=== PATIENT | male | born 1955 | race Caucasian/White ===

== ENCOUNTER 2017-04-13 12:41 | Inpatient (IN) | payer OTHER ==
[2017-04-13 16:20] VITALS: BMI 25.8
--- NOTE | 2017-04-13 18:19 | HP ---
CIWA Score - CIWA Score Nausea/Vomitin-Mild Nausea/No Vomiting Muscle Tremors: 4-Moderate,w/Arms Extend Anxiety: 4-Mod. Anxious/Guarded Agitation: 4-Moderately Restless Paroxysmal Sweats: 1-Minimal Palms Moist Orientation: 0-Oriented Tacttile Disturbances: 0-None Auditory Disturbances: 0-None Visual Disturbances: 0-None Headache: 0-None Present CIWA-Ar Total Score: 14 Admission ROS BHS - HPI Chief Complaint: withdrawal sx Allergies/Adverse Reactions: Allergies Allergy/AdvReac Type Severity Reaction Status Date / Time No Known Allergies Allergy Verified 04/13/17 16:38 History of Present Illness: 61 years old male with long history of alcohol nicotine dependence has hypertension and abdominal aneurysm x 3 years, has anxiety is admitted to detox Exam Limitations: No Limitations - Ebola screening Have you traveled outside of the country in the last 21 days: No Have you had contact with anyone from an Ebola affected area: No Have you been sick,other than usual withdrawal symptoms: No Do you have a fever: No - Review of Systems Constitutional: Chills, Changes in sleep, Weight Stable EENT: reports: No Symptoms Reported Respiratory: reports: No Symptoms reported Cardiac: reports: No Symptoms Reported GI: reports: Nausea, Poor Fluid Intake, Abdominal cramping : reports: No Symptoms Reported Musculoskeletal: reports: No Symptoms Reported Integumentary: reports: Erythema (left knee abrasion x 7 days) Neuro: reports: Tremors Endocrine: reports: No Symptoms Reported Hematology: reports: No Symptoms Reported Psychiatric: reports: Judgement Intact, Orientated x3, Anxious, Depressed Other Systems: Reviewed and Negative Patient History - Patient Medical History Hx Anemia: No Hx Asthma: No Hx Chronic Obstructive Pulmonary Disease (COPD): No Hx Cancer: No Hx Cardiac Disorders: No Hx Congestive Heart Failure: No Hx Hypertension: Yes Hx Hypercholesterolemia: No Hx Pacemaker: No HX Cerebrovascular Accident: No Hx Seizures: No Hx Dementia: No Hx Diabetes: No Hx Gastrointestinal Disorders: No Hx Liver Disease: No Hx Genitourinary Disorders: No Hx Sexually Transmitted Disorders: No Hx Renal Disease (ESRD): No Hx Thyroid Disease: No Hx Human Immunodeficiency Virus (HIV): No Hx Hepatitis C: Yes Hx Depression: Yes Hx Suicide Attempt: No Hx Bipolar Disorder: No Hx Schizophrenia: No - Patient Surgical History Past Surgical History: No Hx Neurologic Surgery: No Hx Cataract Extraction: No Hx Cardiac Surgery: No Hx Lung Surgery: No Hx Breast Surgery: No Hx Breast Biopsy: No Hx Abdominal Surgery: No Hx Appendectomy: No Hx Cholecystectomy: No Hx Genitourinary Surgery: No Hx Orthopedic Surgery: No - PPD History Previous Implant?: Yes Documented Results: Negative w/o proof Implanted On Prior R Admission?: No PPD to be Administered?: Yes - Smoking Cessation Smoking history: Current every day smoker Have you smoked in the past 12 months: Yes Aproximately how many cigarettes per day: 20 Cigars Per Day: 0 Hx Chewing Tobacco Use: No Initiated information on smoking cessation: Yes 'Breaking Loose' booklet given: 04/13/17 - Substance & Tx. History Hx Alcohol Use: Yes Hx Substance Use: No Substance Use Type: Alcohol Hx Substance Use Treatment: Yes (1996) - Substances Abused Alcohol Route: Oral Frequency: Daily Amount used: WHISKEY 1 PINT, 1-2 6P OF BEER Age of first use: 28 Date of Last Use: 04/13/17 Family Disease History - Family Disease History Family Disease History: Heart Disease: Father (), Mother, Other: Father Admission Physical Exam S - Vital Signs Vital Signs: Vital Signs - 24 hr 04/13/17 16:17 Temperature 96 F L Pulse Rate 103 H Respiratory 20 Rate Blood Pressure 161/93 - Physical General Appearance: Yes: Nourished, Appropriately Dressed, Mild Distress, Tremorous, Irritable, Sweating, Anxious HEENTM: Yes: Hearing grossly Normal, Normal ENT Inspection, Normocephalic, Normal Voice Respiratory: Yes: Chest Non-Tender, Lungs Clear, Normal Breath Sounds, No Respiratory Distress, No Accessory Muscle Use Neck: Yes: Supple, Trachea in good position Cardiology: Yes: Regular Rhythm, S1, S2, Tachycardia Abdominal: Yes: Normal Bowel Sounds, Non Tender, Soft Genitourinary: Yes: Within Normal Limits Back: Yes: Normal Inspection Musculoskeletal: Yes: full range of Motion, Gait Steady Extremities: Yes: Normal Inspection, Normal Range of Motion, Non-Tender, Tremors Neurological: Yes: Fully Oriented, Alert, Motor Strength 5/5, Normal Response, Depressed Affect Integumentary: Yes: Warm Lymphatic: Yes: Within Normal Limits - Diagnostic (1) Anxiety Current Visit: Yes Status: Suspected (2) Alcohol dependence with uncomplicated withdrawal Current Visit: Yes Status: Acute (3) Nicotine dependence Current Visit: Yes Status: Acute Qualifiers: Nicotine product type: cigarettes Substance use status: in withdrawal Qualified Code(s): F17.213 - Nicotine dependence, cigarettes, with withdrawal (4) Hepatitis-C Current Visit: Yes Status: Resolved Qualifiers: Viral hepatitis chronicity: carrier Qualified Code(s): B18.2 - Chronic viral hepatitis C Comment: treated (5) Abdominal aneurysm without mention of rupture Current Visit: Yes Status: Chronic Comment: 3.5 cm Cleared for Admission [facility] - Detox or Rehab [facility] Level of Care: Medically Managed Detox Regimen/Protocol: Librium [facility] Breath Alcohol Content Breath Alcohol Content: 0 Urine Drug Screen - Results Drug Screen Negative: Yes
[2017-04-13] MEDS ORDERED: MAGNESIUM HYDROX 2400MG/30ML ORAL SUSPENSION 30 ML CUP PO PRN (18:24)
[2017-04-13] MEDS ORDERED: LOPERAMIDE HCL 2 MG CAPSULE PO PRN (18:24)
[2017-04-13] MEDS ORDERED: IBUPROFEN 400 MG TABLET (FP) PO PRN (18:24)
[2017-04-13] MEDS ORDERED: MENTHOL/PHENOL 1 EACH UD MM PRN (18:24)
[2017-04-13] MEDS ORDERED: NICOTINE POLACRILEX 4 MG GUM BC PRN (18:24)
[2017-04-13] MEDS ORDERED: guaiFENesin/D-METHORPHAN HB 10 ML UNIT-DOSE CUPS PO PRN (18:24)
[2017-04-13] MEDS ORDERED: MAG HYDROX/AL HYDROX/SIMETH 30 ML UNIT-DOSE CUP PO PRN (18:24)
[2017-04-13] MEDS ORDERED: ACETAMINOPHEN 325 MG TABLET (FP) PO PRN (18:24)
[2017-04-13] MEDS ORDERED: hydrOXYzine PAMOATE 50 MG CAPSULE (FP) PO PRN (18:24)
[2017-04-13] MEDS ORDERED: P-EPHED 60MG/TRIPROLIDI 2.5MG TABLET PO PRN (18:24)
[2017-04-13] MEDS ORDERED: MAGNESIUM CITRATE 300 ML BOTTLE PO PRN (18:24)
[2017-04-13] MEDS ORDERED: chlordiazePOXIDE HCL 25 MG CAPSULE PO ONE (19:00)
[2017-04-13] MEDS: LOSARTAN POTASSIUM 50 MG TABLET (FP) PO SCH (19:13)
[2017-04-13] MEDS: amLODIPine BESYLATE 10 MG TABLET (FP) PO SCH (19:13)
[2017-04-13] MEDS: chlordiazePOXIDE HCL 25 MG CAPSULE PO PRN (20:31)
[2017-04-13] MEDS: THIAMINE HCL 100 MG TABLET (FP) PO SCH (22:37)
[2017-04-13] MEDS: chlordiazePOXIDE HCL 25 MG CAPSULE PO SCH (22:38)
[2017-04-13] MEDS: diphenhydrAMINE HCL 50 MG CAPSULE PO PRN (22:38)
[2017-04-14] MEDS: chlordiazePOXIDE HCL 25 MG CAPSULE PO SCH ×4 (05:59→22:36)
--- NOTE | 2017-04-14 09:45 | CONSULT ---
[facility] Psychiatric Consult - Data Date of interview: 04/14/17 Admission source: [facility] Identifying data: This is 61 years old male with no psychiatric hospitalization history intoxicated with: Alcohol and Nicotine Substance Abuse History: - Smoking Cessation. Smoking history: Current every day smoker. Have you smoked in the past 12 months: Yes. Aproximately how many cigarettes per day: 20. Cigars Per Day: 0. Hx Chewing Tobacco Use: No. Initiated information on smoking cessation: Yes. 'Breaking Loose' booklet given : 04/13/17. - Substance & Tx. History. Hx Alcohol Use: Yes. Hx Substance Use : No. Substance Use Type: Alcohol. Hx Substance Use Treatment: Yes (1996). - Substances Abused. Alcohol. Route: Oral. Frequency: Daily. Amount used: WHISKEY 1 PINT, 1-2 6P OF BEER. Age of first use: 28. Date of Last Use: 04/13 Medical History: Abdomina Aneurism history, HepC+, Psychiatric History: Denies past psychiatgric history Physical/Sexual Abuse/Trauma History: Denies Additional Comment: Detox Unit Care Protocol Mental Status Exam - Mental Status Exam Alert and Oriented to: Person Cognitive Function: Fair Patient Appearance: Unkempt Mood: Sad Affect: Flat Patient Behavior: Sedated Speech Pattern: Delayed Voice Loudness: Mildly Soft/Quiet Thought Process: Goal Oriented Thought Disorder: Being Controlled Hallucinations: Denies Suicidal Ideation: Denies Homicidal Ideation: Denies Insight/Judgement: Fair Sleep: Difficulty falling asleep Appetite: Fair Muscle strength/Tone: Normal Gait/Station: Shuffling Additional Comments: Detox Unit Care Protocol Psychiatric Findings - Problem List ([place] 1, 2,3) (1) Alcohol dependence with uncomplicated withdrawal Current Visit: Yes Status: Acute (2) Nicotine dependence Current Visit: Yes Status: Acute Qualifiers: Nicotine product type: cigarettes Substance use status: in withdrawal Qualified Code(s): F17.213 - Nicotine dependence, cigarettes, with withdrawal (3) Drug-induced mood disorder Current Visit: Yes Status: Suspected - Initial Treatment Plan Initial Treatment Plan: Detox Unit Care Protocol
[2017-04-14 09:50] LABS: MCHC 33.4 g/dl (32.0-35.9); MEAN PLT VOLUME 8.7 fl (7.5-11.1); PLATELET COUNT 297 K/MM3 (134-434); RDW 14.9 % (11.9-15.9); WHITE BLOOD COUNT 9.4 K/mm3 (4.0-10.0)
[2017-04-14] MEDS: LOSARTAN POTASSIUM 50 MG TABLET (FP) PO SCH (10:41)
[2017-04-14] MEDS: NICOTINE 21 MG/24 HOURS TOPICAL PATCH TD SCH (10:41)
[2017-04-14] MEDS: amLODIPine BESYLATE 10 MG TABLET (FP) PO SCH (10:41)
[2017-04-14] MEDS: PRENATAL VITAMINS W/ FOLIC ACID TABLET (FP) PO SCH (10:41)
[2017-04-14 11:11] LABS: ALBUMIN 3.9 g/dl (3.4-5.0); ALK PHOS 115 U/L (45-117); ANION GAP 11 (8-16); BILIRUBIN,TOTAL 0.6 mg/dL (0.2-1.0); CALCIUM 8.7 mg/dL (8.5-10.1); CO2 20 mmol/L (21-32); GLUCOSE,RANDOM 146 mg/dL (74-106); SGOT/AST 24 U/L (15-37); SGPT/ALT 25 U/L (12-78)
[2017-04-14] MEDS ORDERED: PNEUMOC 13-VAL CONJ-DIP CRM/PF 0.5 ML DISP.SYRIN IM ONE (12:00)
[2017-04-14] MEDS ORDERED: PNEUMOCOCCAL 23 VACCINE 0.5 ML VIAL IM ONE (12:00)
--- NOTE | 2017-04-14 12:22 | PN ---
S CIWA - CIWA Score Nausea/Vomitin Muscle Tremors: 4-Moderate,w/Arms Extend Anxiety: 3 Agitation: 4-Moderately Restless Paroxysmal Sweats: 3 Orientation: 0-Oriented Tacttile Disturbances: 1-Very Mild Itch/Numbness Auditory Disturbances: 0-None Visual Disturbances: 0-None Headache: 1-Very Mild CIWA-Ar Total Score: 19 BHS Progress Note (SOAP) Subjective: nausea, sweats, interrupted sleep, anxiety, tremors Objective: 04/14/17 12:21 Vital Signs - 8 hr 04/14/17 04/14/17 06:48 10:17 Temperature 96.7 F L 96.4 F L Pulse Rate 84 89 Respiratory 18 20 Rate Blood Pressure 146/100 141/100 Laboratory Tests 04/14/17 04/14/17 04/14/17 06:00 06:00 06:00 WBC 9.4 RBC 4.81 Hgb 15.9 Hct 47.6 MCV 99.0 H MCH 33.0 MCHC 33.4 RDW 14.9 Plt Count 297 MPV 8.7 Sodium 140 Potassium 4.3 Chloride 109 H Carbon Dioxide 20 L Anion Gap 11 BUN 13 Creatinine 1.0 Creat Clearance w eGFR > 60 Random Glucose 146 H Calcium 8.7 Total Bilirubin 0.6 AST 24 ALT 25 Alkaline Phosphatase 115 Total Protein 7.0 Albumin 3.9 RPR Titer Nonreactive macrocytosis, hypertension Assessment: 04/14/17 12:22 withdrawal sx Plan: cont detox, fluids, ambulation
--- NOTE | 2017-04-14 15:00 | EKG ---
Test Reason : Blood Pressure : / mmHG Vent. Rate : 088 BPM Atrial Rate : 088 BPM P-R Int : 158 ms QRS Dur : 082 ms QT Int : 372 ms P-R-T Axes : 058 004 043 degrees QTc Int : 450 ms NORMAL SINUS RHYTHM POSSIBLE LEFT ATRIAL ENLARGEMENT BORDERLINE ECG NO PREVIOUS ECGS AVAILABLE Confirmed by SAMMY HERNANDEZ, GUNNAR ([id number]) on 04/14/2017 3:00:15 PM Referred By: Confirmed By:GUNNAR CHRISTIANSON MD
[2017-04-14 17:23] LABS: URINE APPEARANCE CLEAR; URINE BILIRUBIN NEGATIVE (NEGATIVE); URINE BLOOD NEGATIVE (NEGATIVE); URINE COLOR LT. YELLOW; URINE GLUCOSE (UA) NEGATIVE (NEGATIVE); URINE KETONE NEGATIVE (NEGATIVE); URINE LEUK ESTERASE NEGATIVE (NEGATIVE); URINE NITRITE NEGATIVE (NEGATIVE); URINE PROTEIN NEGATIVE (NEGATIVE); URINE UROBILINOGEN 0.2 mg/dL (0.2-1.0)
[2017-04-14] MEDS: diphenhydrAMINE HCL 50 MG CAPSULE PO PRN (22:35)
[2017-04-14] MEDS: THIAMINE HCL 100 MG TABLET (FP) PO SCH (22:35)
[2017-04-15] MEDS: diphenhydrAMINE HCL 50 MG CAPSULE PO PRN (00:47)
[2017-04-15] MEDS: chlordiazePOXIDE HCL 25 MG CAPSULE PO PRN (00:47)
[2017-04-15] MEDS: chlordiazePOXIDE HCL 25 MG CAPSULE PO SCH ×2 (05:58→10:43)
[2017-04-15 09:41] VITALS: BP 141/93; PULSE 93; TEMP 97.1
[2017-04-15] MEDS: LOSARTAN POTASSIUM 50 MG TABLET (FP) PO SCH (10:43)
[2017-04-15] MEDS: amLODIPine BESYLATE 10 MG TABLET (FP) PO SCH (10:43)
[2017-04-15] MEDS: NICOTINE 21 MG/24 HOURS TOPICAL PATCH TD SCH (10:43)
[2017-04-15] MEDS: PRENATAL VITAMINS W/ FOLIC ACID TABLET (FP) PO SCH (10:43)
--- NOTE | 2017-04-15 16:38 | DS ---
[facility] Detox Discharge Summary Admission Date: 04/13/17 Discharge Date: 04/15/17 - History Pertinent Past History: Hep C Abdominal aneurysm - Physical Exam Results Vital Signs: Vital Signs Temperature 97.1 F L 04/15/17 09:40 Pulse Rate 93 H 04/15/17 09:40 Respiratory Rate 20 04/15/17 09:40 Blood Pressure 141/93 04/15/17 09:40 O2 Sat by Pulse Oximetry (%) Pertinent Admission Physical Exam Findings: Withdrawal sx. Laboratory Last Values WBC 9.4 K/mm3 (4.0-10.0) 04/14/17 06:00 RBC 4.81 M/mm3 (4.00-5.60) 04/14/17 06:00 Hgb 15.9 GM/dL (11.7-16.9) 04/14/17 06:00 Hct 47.6 % (35.4-49) 04/14/17 06:00 MCV 99.0 fl (80-96) H 04/14/17 06:00 MCH 33.0 pg (25.7-33.7) 04/14/17 06:00 MCHC 33.4 g/dl (32.0-35.9) 04/14/17 06:00 RDW 14.9 % (11.9-15.9) 04/14/17 06:00 Plt Count 297 K/MM3 (134-434) 04/14/17 06:00 MPV 8.7 fl (7.5-11.1) 04/14/17 06:00 Sodium 140 mmol/L (136-145) 04/14/17 06:00 Potassium 4.3 mmol/L (3.5-5.1) 04/14/17 06:00 Chloride 109 mmol/L (98-107) H 04/14/17 06:00 Carbon Dioxide 20 mmol/L (21-32) L 04/14/17 06:00 Anion Gap 11 (8-16) 04/14/17 06:00 BUN 13 mg/dL (7-18) 04/14/17 06:00 Creatinine 1.0 mg/dL (0.7-1.3) 04/14/17 06:00 Creat Clearance w eGFR > 60 (>60) 04/14/17 06:00 Random Glucose 146 mg/dL (74-106) H 04/14/17 06:00 Calcium 8.7 mg/dL (8.5-10.1) 04/14/17 06:00 Total Bilirubin 0.6 mg/dL (0.2-1.0) 04/14/17 06:00 AST 24 U/L (15-37) 04/14/17 06:00 ALT 25 U/L (12-78) 04/14/17 06:00 Alkaline Phosphatase 115 U/L (45-117) 04/14/17 06:00 Total Protein 7.0 g/dl (6.4-8.2) 04/14/17 06:00 Albumin 3.9 g/dl (3.4-5.0) 04/14/17 06:00 Urine Color Lt. yellow 04/13/17 15:00 Urine Appearance Clear 04/13/17 15:00 Urine pH 6.0 (5.0-8.0) 04/13/17 15:00 Ur Specific [place] <= 1.005 (1.005-1.025) 04/13/17 15:00 Urine Protein Negative (NEGATIVE) 04/13/17 15:00 Urine Glucose (UA) Negative (NEGATIVE) 04/13/17 15:00 Urine Ketones Negative (NEGATIVE) 04/13/17 15:00 Urine Blood Negative (NEGATIVE) 04/13/17 15:00 Urine Nitrite Negative (NEGATIVE) 04/13/17 15:00 Urine Bilirubin Negative (NEGATIVE) 04/13/17 15:00 Urine Urobilinogen 0.2 mg/dL (0.2-1.0) 04/13/17 15:00 Ur Leukocyte Esterase Negative (NEGATIVE) 04/13/17 15:00 RPR Titer Nonreactive (NONREACTIVE) 04/14/17 06:00 labs noted - Treatment Patient has Accepted a Rehab Referral to: [facility] - Medication Discharge Medications: Ambulatory Orders Losartan Potassium [Cozaar -] 50 mg PO DAILY 04/12/17 Amlodipine Besylate [Norvasc -] 10 mg PO DAILY 04/13/17 - Diagnosis (1) Alcohol dependence with uncomplicated withdrawal Status: Acute (2) Nicotine dependence Status: Acute Qualifiers: Nicotine product type: cigarettes Substance use status: in withdrawal Qualified Code(s): F17.213 - Nicotine dependence, cigarettes, with withdrawal (3) Abdominal aneurysm without mention of rupture Status: Chronic (4) Drug-induced mood disorder Status: Suspected (5) Hepatitis-C Status: Resolved Qualifiers: Viral hepatitis chronicity: carrier Qualified Code(s): B18.2 - Chronic viral hepatitis C (6) HTN (hypertension) Status: Acute Qualifiers: Hypertension type: essential hypertension Qualified Code(s): I10 - Essential (primary) hypertension - AMA Did Patient Leave Against Medical Advice: Yes
[2017-04-15] MEDS ORDERED: chlordiazePOXIDE 5 MG CAPSULE PO SCH (23:00)
[2017-04-16] MEDS ORDERED: chlordiazePOXIDE HCL 10 MG CAPSULE PO SCH (23:00)
== END 2017-04-15 11:40 | disposition left against medical advice (07) | DRG 770 ==
LOC: YASAS 12:41 → Y3N 17:00
PROVIDERS: ADMIT Internal Medicine; ATTEND Internal Medicine
PROC: HZ2ZZZZ Detoxification Services for Substance Abuse Treatment (ICD-10-PCS; principal; 2017-04-13)
DX: F10.230 Alcohol dependence with withdrawal, uncomplicated (principal); F17.210 Nicotine dependence, cigarettes, uncomplicated; F19.24 Other psychoactive substance dependence with psychoactive substance-induced mood disorder; F41.9 Anxiety disorder, unspecified; I71.4 Abdominal aortic aneurysm, without rupture; B18.2 Chronic viral hepatitis C; I10 Essential (primary) hypertension; D75.89 Other specified diseases of blood and blood-forming organs; R00.0 Tachycardia, unspecified
CPT/HCPCS: 36415; 80053; 81003; 85027; 86593; 93005; 93010

== ENCOUNTER 2017-05-21 10:50 | Inpatient (IN) | payer MEDICARE ==
[2017-05-21 11:09] VITALS: BMI 25.8
--- NOTE | 2017-05-21 12:00 | HP ---
COWS - Scale Resting Pulse: 1= MA 81-100 CIWA Score - CIWA Score Nausea/Vomitin-Mild Nausea/No Vomiting Muscle Tremors: 4-Moderate,w/Arms Extend Anxiety: 4-Mod. Anxious/Guarded Agitation: 1-Slight > Activity Paroxysmal Sweats: 1-Minimal Palms Moist Orientation: 1-Uncertain about Date Tacttile Disturbances: 1-Very Mild Itch/Numbness Auditory Disturbances: 1-Very Mild Visual Disturbances: 1-Very Mild Sensitivity Headache: 2-Mild CIWA-Ar Total Score: 17 Admission ROS BHS - HPI Chief Complaint: I can't stop on my own, I need help, I get too sick Allergies/Adverse Reactions: Allergies Allergy/AdvReac Type Severity Reaction Status Date / Time No Known Allergies Allergy Verified 05/21/17 12:54 History of Present Illness: 61 yo gentleman here for detox from alcohol - was here in march - did not f/u with rehab - states threw him out three days ago for drinking. Denies seizures, no black outs, longest times sober 19 years - relapsed when "I thought I could drink again". Exam Limitations: Clinical Condition - Ebola screening Have you traveled outside of the country in the last 21 days: No Have you had contact with anyone from an Ebola affected area: No Have you been sick,other than usual withdrawal symptoms: No Do you have a fever: No - Review of Systems Constitutional: Loss of Appetite, Changes in sleep EENT: reports: Blurred Vision Respiratory: reports: Cough (clear phlegm) Cardiac: reports: No Symptoms Reported GI: reports: Nausea, Poor Appetite : reports: No Symptoms Reported Musculoskeletal: reports: Other (left hand limitted ROM/movement due to fracture of fingers) Integumentary: reports: No Symptoms Reported Neuro: reports: No Symptoms reported, Tremors Endocrine: reports: No Symptoms Reported Hematology: reports: No Symptoms Reported Psychiatric: reports: Judgement Intact, Mood/Affect Appropiate, Anxious Patient History - Patient Medical History Hx Anemia: No Hx Asthma: No Hx Chronic Obstructive Pulmonary Disease (COPD): No Hx Cancer: No Hx Cardiac Disorders: No Hx Congestive Heart Failure: No Hx Hypertension: Yes Hx Hypercholesterolemia: No Hx Pacemaker: No HX Cerebrovascular Accident: No Hx Seizures: No Hx Dementia: No Hx Diabetes: No Hx Gastrointestinal Disorders: No Hx Liver Disease: No Hx Genitourinary Disorders: No Hx Sexually Transmitted Disorders: No Hx Renal Disease (ESRD): No Hx Thyroid Disease: No Hx Human Immunodeficiency Virus (HIV): No Hx Hepatitis C: Yes (treated with epolus ) Hx Depression: Yes Hx Suicide Attempt: No Hx Bipolar Disorder: No Hx Schizophrenia: No - Patient Surgical History Past Surgical History: No Hx Neurologic Surgery: No Hx Cataract Extraction: No Hx Cardiac Surgery: No Hx Lung Surgery: No Hx Breast Surgery: No Hx Breast Biopsy: No Hx Abdominal Surgery: No Hx Appendectomy: No Hx Cholecystectomy: No Hx Genitourinary Surgery: No Hx Section: No Hx Orthopedic Surgery: No Anesthesia Reaction: No - PPD History Previous Implant?: Yes Documented Results: Negative w/proof Date: 04/15/17 PPD to be Administered?: No - Reproductive History Patient is a Female of Child Bearing Age (11 -55 yrs old): No (male) - Smoking Cessation Smoking history: Current every day smoker Have you smoked in the past 12 months: Yes Aproximately how many cigarettes per day: 10 Cigars Per Day: 0 Hx Chewing Tobacco Use: No Initiated information on smoking cessation: Yes 'Breaking Loose' booklet given: 05/21/17 (give on floor) - Substance & Tx. History Hx Alcohol Use: Yes Hx Substance Use: No Substance Use Type: Alcohol Hx Substance Use Treatment: Yes (detox) - Substances Abused Alcohol Route: Oral Frequency: Daily Amount used: two six packs 12 oz beer; 1 quart scotch Age of first use: 28 Date of Last Use: 05/21/17 Family Disease History - Family Disease History Family Disease History: Heart Disease: Father (), Mother (dying - in a residential), Other: Father, Mother, Sister (three - living - healthy) Admission Physical Exam S - Vital Signs Vital Signs: Vital Signs - 24 hr 05/21/17 11:07 Temperature 97.8 F Pulse Rate 110 H Respiratory 20 Rate Blood Pressure 149/91 - Physical General Appearance: Yes: Nourished, Appropriately Dressed, Mild Distress, Tremorous, Anxious HEENTM: Yes: Hearing grossly Normal, Normocephalic, Normal Voice, Pharynx Normal , Other (eyes red) Respiratory: Yes: Normal Breath Sounds, No Respiratory Distress Neck: Yes: No masses,lesions,Nodules, Supple Breast: Yes: Breast Exam Deferred Cardiology: Yes: Regular Rhythm, Regular Rate Abdominal: Yes: Soft Genitourinary: Yes: Frequency Back: Yes: Normal Inspection Musculoskeletal: Yes: full range of Motion, Gait Steady Extremities: Yes: Pedal Edema, Other (left hand with swelling, limitted movement - states he broke the pinky and ring finger - was seen at [facility] ED - they casted it but he took it off - about a month ago) Neurological: Yes: Alert, Normal Mood/Affect, Normal Response Integumentary: Yes: Normal Color Lymphatic: Yes: Within Normal Limits - Diagnostic (1) Alcohol dependence with uncomplicated withdrawal Current Visit: Yes Status: Chronic (2) HTN (hypertension) Current Visit: Yes Status: Chronic Qualifiers: Hypertension type: essential hypertension Qualified Code(s): I10 - Essential (primary) hypertension (3) Nicotine dependence Current Visit: Yes Status: Chronic Qualifiers: Nicotine product type: cigarettes Substance use status: in withdrawal Qualified Code(s): F17.213 - Nicotine dependence, cigarettes, with withdrawal (4) Abdominal aneurysm without mention of rupture Current Visit: Yes Status: Chronic Comment: 3.5 cm (5) Swelling of left hand Current Visit: Yes Status: Chronic Comment: states fracture of pinky and ring finger a month ago but he took off the cast as 'too bulky' and now with swelling and reduced ROM Cleared for Admission [facility] - Detox or Rehab [facility] Level of Care: Medically Managed Detox Regimen/Protocol: Librium [facility] Breath Alcohol Content Breath Alcohol Content: 0.256 Urine Drug Screen - Results Drug Screen Negative: No Urine Drug Screen Results: TCA-Tricyclic Antidepress
[2017-05-21] MEDS ORDERED: P-EPHED 60MG/TRIPROLIDI 2.5MG TABLET PO PRN (12:11)
[2017-05-21] MEDS ORDERED: IBUPROFEN 400 MG TABLET (FP) PO PRN (12:11)
[2017-05-21] MEDS ORDERED: chlordiazePOXIDE HCL 25 MG CAPSULE PO PRN (12:11)
[2017-05-21] MEDS ORDERED: MAG HYDROX/AL HYDROX/SIMETH 30 ML UNIT-DOSE CUP PO PRN (12:11)
[2017-05-21] MEDS ORDERED: MENTHOL/PHENOL 1 EACH UD MM PRN (12:11)
[2017-05-21] MEDS ORDERED: MAGNESIUM CITRATE 300 ML BOTTLE PO PRN (12:11)
[2017-05-21] MEDS ORDERED: hydrOXYzine PAMOATE 50 MG CAPSULE (FP) PO PRN (12:11)
[2017-05-21] MEDS ORDERED: ACETAMINOPHEN 325 MG TABLET (FP) PO PRN (12:11)
[2017-05-21] MEDS ORDERED: MAGNESIUM HYDROX 2400MG/30ML ORAL SUSPENSION 30 ML CUP PO PRN (12:11)
[2017-05-21] MEDS ORDERED: LOPERAMIDE HCL 2 MG CAPSULE PO PRN (12:11)
[2017-05-21] MEDS ORDERED: guaiFENesin/D-METHORPHAN HB 10 ML UNIT-DOSE CUPS PO PRN (12:11)
[2017-05-21] MEDS ORDERED: amLODIPine BESYLATE 10 MG TABLET (FP) PO SCH (16:30)
[2017-05-21] MEDS ORDERED: LOSARTAN POTASSIUM 50 MG TABLET (FP) PO SCH (16:30)
[2017-05-21] MEDS ORDERED: chlordiazePOXIDE HCL 25 MG CAPSULE PO ONE (16:30)
[2017-05-21] MEDS ORDERED: chlordiazePOXIDE HCL 25 MG CAPSULE PO SCH (17:00)
[2017-05-21] MEDS: NICOTINE 21 MG/24 HOURS TOPICAL PATCH TD SCH ×2 (18:16→18:57)
[2017-05-21 18:49] VITALS: BP 149/88; PULSE 116; TEMP 98.8
--- NOTE | 2017-05-21 19:41 | PN ---
S Progress Note Note: CALLED BY NURSE STATED PATIENT LEFT THE UNIT,DID NOT WANT TO BE IN DETOX, NURSING INSPECTOR CLIP ON [employer]GL[employer]ES NOTIFIED, LEFT AMA,
--- NOTE | 2017-05-21 19:49 | DS ---
[facility] Detox Discharge Summary Admission Date: 05/21/17 Discharge Date: 05/21/17 - History Present History: Alcohol Dependence Additional Comments: CALLED BY NURSE,PATIENT WALKED OFF FROM UNIT,DID NOT WANT TO STAY FOR DETOX, LEFT AMA,NURSING PHILATELIC CONSULTANT NOTIFIED Pertinent Past History: HYPERTENSION ABDOMINAL AORTIC ANEURYSM NICOTINE DEPENDENCE - Physical Exam Results Vital Signs: Vital Signs Temperature 98.8 F 05/21/17 18:48 Pulse Rate 116 H 05/21/17 18:48 Respiratory Rate 18 05/21/17 18:48 Blood Pressure 149/88 05/21/17 18:48 O2 Sat by Pulse Oximetry (%) Pertinent Admission Physical Exam Findings: WITHDRAWAL SYMPTOM - Medication Discharge Medications: Ambulatory Orders Losartan Potassium [Cozaar -] 50 mg PO DAILY 04/12/17 Amlodipine Besylate [Norvasc -] 10 mg PO DAILY 04/13/17 - Diagnosis (1) Alcohol dependence with uncomplicated withdrawal Current Visit: Yes Status: Chronic (2) Abdominal aneurysm without mention of rupture Current Visit: Yes Status: Chronic (3) HTN (hypertension) Current Visit: Yes Status: Chronic Qualifiers: Hypertension type: essential hypertension Qualified Code(s): I10 - Essential (primary) hypertension (4) Nicotine dependence Current Visit: Yes Status: Chronic Qualifiers: Nicotine product type: cigarettes Substance use status: in withdrawal Qualified Code(s): F17.213 - Nicotine dependence, cigarettes, with withdrawal (5) Swelling of left hand Current Visit: Yes Status: Chronic (6) Drug-induced mood disorder Current Visit: No Status: Suspected - AMA Did Patient Leave Against Medical Advice: Yes
[2017-05-21] MEDS ORDERED: diphenhydrAMINE HCL 50 MG CAPSULE PO PRN (22:00)
[2017-05-21] MEDS ORDERED: THIAMINE HCL 100 MG TABLET (FP) PO SCH (22:00)
--- NOTE | 2017-05-22 08:45 | EKG ---
Test Reason : Blood Pressure : / mmHG Vent. Rate : 100 BPM Atrial Rate : 100 BPM P-R Int : 154 ms QRS Dur : 084 ms QT Int : 364 ms P-R-T Axes : 066 013 043 degrees QTc Int : 469 ms NORMAL SINUS RHYTHM POSSIBLE LEFT ATRIAL ENLARGEMENT Confirmed by MD JADA, FELIPA ([id number]) on 05/22/2017 8:45:13 AM Referred By: Confirmed By:FELIPA ELIAS MD
[2017-05-22] MEDS ORDERED: PRENATAL VITAMINS W/ FOLIC ACID TABLET (FP) PO SCH (10:00)
[2017-05-22 10:21] LABS: URINE APPEARANCE CLEAR; URINE BILIRUBIN NEGATIVE (NEGATIVE); URINE BLOOD NEGATIVE (NEGATIVE); URINE COLOR STRAW; URINE GLUCOSE (UA) NEGATIVE (NEGATIVE); URINE KETONE NEGATIVE (NEGATIVE); URINE LEUK ESTERASE NEGATIVE (NEGATIVE); URINE NITRITE NEGATIVE (NEGATIVE); URINE PROTEIN NEGATIVE (NEGATIVE); URINE UROBILINOGEN NEGATIVE mg/dL (0.2-1.0)
[2017-05-22] MEDS ORDERED: chlordiazePOXIDE HCL 25 MG CAPSULE PO SCH (17:00)
[2017-05-23] MEDS ORDERED: chlordiazePOXIDE 5 MG CAPSULE PO SCH (17:00)
[2017-05-24] MEDS ORDERED: chlordiazePOXIDE HCL 10 MG CAPSULE PO SCH (17:00)
== END 2017-05-21 19:29 | disposition left against medical advice (07) | DRG 770 ==
LOC: YASAS 10:50 → Y3N 15:23
PROVIDERS: ADMIT Internal Medicine; ATTEND Internal Medicine
PROC: HZ2ZZZZ Detoxification Services for Substance Abuse Treatment (ICD-10-PCS; principal; 2017-05-21)
DX: F10.230 Alcohol dependence with withdrawal, uncomplicated (principal); F17.210 Nicotine dependence, cigarettes, uncomplicated; F19.24 Other psychoactive substance dependence with psychoactive substance-induced mood disorder; I10 Essential (primary) hypertension; I71.4 Abdominal aortic aneurysm, without rupture; M79.89 Other specified soft tissue disorders; R22.32 Localized swelling, mass and lump, left upper limb
CPT/HCPCS: 81003; 93005; 93010

== ENCOUNTER 2017-09-23 09:10 | Inpatient (IN) | payer OTHER ==
[2017-09-23 09:32] VITALS: BMI 25.8
--- NOTE | 2017-09-23 11:47 | HP ---
CIWA Score - CIWA Score Nausea/Vomitin Muscle Tremors: 3 Anxiety: 3 Agitation: 3 Paroxysmal Sweats: 3 Orientation: 0-Oriented Tacttile Disturbances: 1-Very Mild Itch/Numbness Auditory Disturbances: 0-None Visual Disturbances: 0-None Headache: 1-Very Mild CIWA-Ar Total Score: 17 Admission [facility] Chief Complaint: alcohol and benzodiazepine withdrwawal sx Allergies/Adverse Reactions: Allergies Allergy/AdvReac Type Severity Reaction Status Date / Time No Known Allergies Allergy Verified 09/23/17 09:52 History of Present Illness: 62 yo m with h/o alcohol and benzodiazepine and opioid use diosrder, last used opioids on tuesday utox neg has withdrawal sx fromal all drugs. chronic apin syndromee both legs bialteral, prescribed opioid pain medications whcih he runs out of and buys more [employer]. no h/o seiuzres, no DTS. no suicide attempts in past or suicicdal ideation at this time c/o dehydration and depression Exam Limitations: No Limitations - Ebola screening Have you traveled outside of the country in the last 21 days: No Have you had contact with anyone from an Ebola affected area: No Have you been sick,other than usual withdrawal symptoms: No Do you have a fever: No - Review of Systems Constitutional: Chills, Diaphoresis, Night Sweats, Changes in sleep, Weakness, Weight Stable EENT: reports: Tearing, Nose Congestion Respiratory: reports: No Symptoms reported Cardiac: reports: No Symptoms Reported GI: reports: Diarrhea, Nausea, Poor Appetite, Poor Fluid Intake, Vomiting, Indigestion, Abdominal cramping : reports: No Symptoms Reported Musculoskeletal: reports: Back Pain, Joint Pain, Muscle Pain Integumentary: reports: Flushing, Sweating Neuro: reports: Tremors, Weakness Endocrine: reports: Increased Thirst Hematology: reports: No Symptoms Reported Psychiatric: reports: Judgement Intact, Mood/Affect Appropiate, Orientated x3, Anxious, Depressed Other Systems: Reviewed and Negative Patient History - Patient Medical History Hx Anemia: No Hx Asthma: No Hx Chronic Obstructive Pulmonary Disease (COPD): No Hx Cancer: No Hx Cardiac Disorders: No Hx Congestive Heart Failure: No Hx Hypertension: Yes (NON COMPLIANT WITH MEDS.) Hx Hypercholesterolemia: No Hx Pacemaker: No HX Cerebrovascular Accident: No Hx Seizures: No Hx Dementia: No Hx Diabetes: No Hx Gastrointestinal Disorders: No Hx Liver Disease: No Hx Genitourinary Disorders: No Hx Sexually Transmitted Disorders: No Hx Renal Disease (ESRD): No Hx Thyroid Disease: No Hx Human Immunodeficiency Virus (HIV): No Hx Hepatitis C: Yes (treated with epolus ) Hx Depression: Yes Hx Suicide Attempt: No (no si at this time) Hx Bipolar Disorder: No Hx Schizophrenia: No - Patient Surgical History Past Surgical History: No Hx Neurologic Surgery: No Hx Cataract Extraction: No Hx Cardiac Surgery: No Hx Lung Surgery: No Hx Breast Surgery: No Hx Breast Biopsy: No Hx Abdominal Surgery: No Hx Appendectomy: No Hx Cholecystectomy: No Hx Genitourinary Surgery: No Hx Section: No Hx Orthopedic Surgery: No Anesthesia Reaction: No - PPD History Previous Implant?: Yes Documented Results: Negative w/o proof Implanted On Prior R Admission?: Yes Date: 04/15/17 - Reproductive History Patient is a Female of Child Bearing Age (11 -55 yrs old): No Patient : No - Smoking Cessation Smoking history: Current every day smoker Have you smoked in the past 12 months: Yes Aproximately how many cigarettes per day: 10 Cigars Per Day: 0 Hx Chewing Tobacco Use: No Initiated information on smoking cessation: Yes 'Breaking Loose' booklet given: 09/23/17 - Substance & Tx. History Hx Alcohol Use: Yes Hx Substance Use: Yes Substance Use Type: Alcohol, Heroin, Opiates, Prescribed, Tranquilizers [facility]x [facility] - Substances Abused Alcohol Route: Oral Frequency: Daily Amount used: 2 6PKS BEER AND UP Age of first use: 16 Date of Last Use: 09/23/17 Oxycontin Route: Injection Frequency: Daily Age of first use: 14 Date of Last Use: 09/21/17 Family Disease History - Family Disease History Family Disease History: Heart Disease: Father (), Mother (dying - in a longterm), Other: Father, Mother, Sister (three - living - healthy) Admission Physical Exam BHS - Vital Signs Vital Signs: Vital Signs - 24 hr 09/23/17 09:30 Temperature 98.3 F Pulse Rate 111 H Respiratory 18 Rate Blood Pressure 155/103 - Physical General Appearance: Yes: Nourished, Appropriately Dressed, Disheveled, Mild Distress, Tremorous, Irritable, Sweating, Anxious HEENTM: Yes: EOMI, Hearing grossly Normal, Normocephalic, Normal Voice, ROYER, Pharynx Normal, Nasal Congestion, Rhinorrhea Respiratory: Yes: Within Normal Limits, Chest Non-Tender, Lungs Clear, Normal Breath Sounds, No Respiratory Distress, No Accessory Muscle Use Neck: Yes: Within Normal Limits, No masses,lesions,Nodules, Supple, Trachea in good position Breast: Yes: Breast Exam Deferred Cardiology: Yes: Within Normal Limits, Regular Rhythm, Regular Rate, S1, S2 Abdominal: Yes: Normal Bowel Sounds, Non Tender, Soft, Increased Bowel Sounds, Protuberent, Distended Genitourinary: Yes: Within Normal Limits Back: Yes: Normal Inspection Musculoskeletal: Yes: full range of Motion, Gait Steady, Pelvis Stable, Back pain Extremities: Yes: Normal Capillary Refill, Normal Inspection, Normal Range of Motion, Tremors Neurological: Yes: compensation manager II-XII NML intact, Fully Oriented, Alert, Motor Strength 5/5, Normal Response, Depressed Affect Integumentary: Yes: Normal Color, Warm, Diaphoresis, Moist, Track Davis Lymphatic: Yes: Within Normal Limits - Addiitonal Findings: withdrawal sx - Diagnostic (1) Opioid dependence with current use Current Visit: Yes Status: Acute (2) Alcohol dependence with uncomplicated withdrawal Current Visit: No Status: Chronic (3) HTN (hypertension) Current Visit: No Status: Chronic Qualifiers: Hypertension type: essential hypertension Qualified Code(s): I10 - Essential (primary) hypertension (4) Nicotine dependence Current Visit: No Status: Chronic Qualifiers: Nicotine product type: cigarettes Substance use status: in withdrawal Qualified Code(s): F17.213 - Nicotine dependence, cigarettes, with withdrawal (5) Drug-induced mood disorder Current Visit: No Status: Suspected Cleared for Admission [facility] - Detox or Rehab [facility] Level of Care: Medically Managed Detox Regimen/Protocol: Valium [facility] Breath Alcohol Content Breath Alcohol Content: 0.136 Urine Drug Screen - Results Urine Drug Screen Results: BZO-Benzodiazepines, TCA-Tricyclic Antidepress
[2017-09-23] MEDS ORDERED: IBUPROFEN 400 MG TABLET (FP) PO PRN (11:50)
[2017-09-23] MEDS ORDERED: diazePAM 5 MG TABLET PO PRN (11:50)
[2017-09-23] MEDS ORDERED: ACETAMINOPHEN 325 MG TABLET (FP) PO PRN (11:50)
[2017-09-23] MEDS ORDERED: NICOTINE POLACRILEX 4 MG GUM BUC PRN (11:50)
[2017-09-23] MEDS ORDERED: MAGNESIUM HYDROX 2400MG/30ML ORAL SUSPENSION 30 ML CUP PO PRN (11:50)
[2017-09-23] MEDS ORDERED: MAG HYDROX/AL HYDROX/SIMETH 30 ML UNIT-DOSE CUP PO PRN (11:50)
[2017-09-23] MEDS ORDERED: guaiFENesin/D-METHORPHAN HB 10 ML UNIT-DOSE CUPS PO PRN (11:50)
[2017-09-23] MEDS ORDERED: hydrOXYzine PAMOATE 50 MG CAPSULE (FP) PO PRN (11:50)
[2017-09-23] MEDS ORDERED: MENTHOL/PHENOL 1 EACH UD MM PRN (11:50)
[2017-09-23] MEDS ORDERED: P-EPHED 60MG/TRIPROLIDI 2.5MG TABLET PO PRN (11:50)
[2017-09-23] MEDS ORDERED: LOPERAMIDE HCL 2 MG CAPSULE PO PRN (11:50)
[2017-09-23] MEDS ORDERED: MAGNESIUM CITRATE 300 ML BOTTLE PO PRN (11:50)
[2017-09-23] MEDS ORDERED: METOPROLOL TARTRATE 25 MG TABLET (FP) PO SCH (12:00)
[2017-09-23] MEDS ORDERED: NICOTINE 21 MG/24 HOURS TOPICAL PATCH TD SCH (13:00)
[2017-09-23] MEDS ORDERED: diazePAM 5 MG TABLET PO ONE (13:00)
[2017-09-23] MEDS ORDERED: amLODIPine BESYLATE 10 MG TABLET (FP) PO SCH (13:00)
[2017-09-23 13:57] VITALS: BP 156/94; PULSE 120; TEMP 96.4
[2017-09-23] MEDS ORDERED: diazePAM 5 MG TABLET PO SCH (14:00)
--- NOTE | 2017-09-23 14:34 | CONSULT ---
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 Substance Abuse History: Confirmed by patient in this interview.See details in current [facility] report : Smoking history: Current every day smoker. Have you smoked in the past 12 months: Yes. Aproximately how many cigarettes per day: 10. Cigars Per Day: 0. Hx Chewing Tobacco Use: No. Initiated information on smoking cessation: Yes. 'Breaking Loose' booklet given: 09/23/17. - Substance & Tx. History. Hx Alcohol Use: Yes. Hx Substance Use: Yes. Substance Use Type : Alcohol, Heroin, Opiates, Prescribed, Tranquilizers. Hx Substance Use [facility]: [facility] - Substances Abused. Alcohol. Route: Oral. Frequency: Daily. Amount used: 2 6PKS BEER AND UP. Age of first use: 16. Date of Last Use: 09/23/17. Oxycontin. Route: Injection. Frequency: Daily. Age of first use: 14. Date of Last Use: 09/21/17 Medical History: Hepatitis C,hypertension,gout,chronic pain syndrome,abdominal aneurysm and past history of fracture of 4 th + 5 th fingers of left hand.No reported allergies. Psychiatric History: Patient denies. Physical/Sexual Abuse/Trauma History: Patient denies history of abuse. Additional Comment: Urine Drug Screen Results: BZO-Benzodiazepines, TCA- Tricyclic Antidepressant.Noted. Mental Status Exam - Mental Status Exam Alert and Oriented to: Time, Place, Person Cognitive Function: Good Patient Appearance: Well Groomed (short stature but muscular) Mood: Nervous, Anxious, Hopeful Affect: Mood Congruent Patient Behavior: Fatigued, Appropriate, Cooperative (friendly) Speech Pattern: Clear, Appropriate Voice Loudness: Normal Thought Process: Intact, Goal Oriented Thought Disorder: Not Present Hallucinations: Denies Suicidal Ideation: Denies Homicidal Ideation: Denies Insight/Judgement: Poor Sleep: Poorly, Difficulty falling asleep Appetite: Good Muscle strength/Tone: Normal Gait/Station: Normal Psychiatric Findings - Problem List ([place] 1, 2,3) (1) Alcohol dependence with uncomplicated withdrawal Current Visit: Yes Status: Chronic (2) Opioid dependence Current Visit: Yes Status: Acute (3) Nicotine dependence Current Visit: Yes Status: Chronic Qualifiers: Nicotine product type: cigarettes Substance use status: in withdrawal Qualified Code(s): F17.213 - Nicotine dependence, cigarettes, with withdrawal (4) Drug-induced mood disorder Current Visit: Yes Status: Suspected (5) Insomnia Current Visit: Yes Status: Acute - Initial Treatment Plan Initial Treatment Plan: Previous records at [facility] revisited.Psychoeducation and support provided in this session.Sleep hygiene discussed.Detoxification in progress.Insomnia is addressed with ambien 5 mg po hs prn.Patient is made aware of risk of parasomnias (sleep-walking).Mr Deluca expressed his agreement to this careplan.Observation.
--- NOTE | 2017-09-23 16:20 | DS ---
[facility] Detox Discharge Summary Admission Date: 09/23/17 Discharge Date: 09/23/17 - History Present History: Alcohol Dependence, Opioid Dependence Additional Comments: PATIENT DOES NOT WISH TO STAY TO COMPLETE DETOX REGIMEN. RISKS OF LEAVING DETOX UNIT PRIOR TO COMPLETION OF DETOX REGIMEN EXPLAINED TO PATIENT. PATIENT NOTED TO HAVE ELEVATED BP AT TIME OF ADMISSION, PATIENT REPORTS HISTORY OF HTN AND THAT HE HAS ANTI-HYPERTENSIVE MEDICATION AT HOME THAT HE HAS NOT YET TAKEN TODAY. PATIENT DENIES SUICIDAL IDEATION / HOMICIDAL IDEATION. PATIENT ADVISED TO GO IMMEDIATELY TO NEAREST ER SHOULD ANY INTOLERABLE DETOX SYMPTOMS DEVELOP AT ANY TIME. Pertinent Past History: HTN, Depression, Insomnia, History of Hep C (Treated). - Physical Exam Results Vital Signs: Vital Signs Temperature 96.4 F L 09/23/17 13:56 Pulse Rate 120 H 09/23/17 13:56 Respiratory Rate 18 09/23/17 13:56 Blood Pressure 156/94 09/23/17 13:56 O2 Sat by Pulse Oximetry (%) Pertinent Admission Physical Exam Findings: WITHDRAWAL SYMPTOMS. PATIENT LEFT DETOX UNIT PRIOR TO DRAWING OF ADMISSION LABS. - Medication Discharge Medications: Ambulatory Orders Amlodipine Besylate [Norvasc -] 10 mg PO DAILY 04/13/17 Metoprolol Tartrate [Lopressor -] 25 mg PO BID 09/23/17 - Diagnosis (1) Insomnia Status: Acute Qualifiers: Insomnia type: unspecified Qualified Code(s): G47.00 - Insomnia, unspecified (2) Opioid dependence with current use Status: Acute (3) Alcohol dependence with uncomplicated withdrawal Status: Acute (4) HTN (hypertension) Status: Chronic Qualifiers: Hypertension type: essential hypertension Qualified Code(s): I10 - Essential (primary) hypertension (5) Nicotine dependence Status: Chronic Qualifiers: Nicotine product type: cigarettes Substance use status: in withdrawal Qualified Code(s): F17.213 - Nicotine dependence, cigarettes, with withdrawal (6) Drug-induced mood disorder Status: Suspected - AMA Did Patient Leave Against Medical Advice: Yes (PATIENT DID NOT WISH TO STAY TO COMPLETE DETOX REGIMEN.)
[2017-09-23] MEDS ORDERED: THIAMINE HCL 100 MG TABLET (FP) PO SCH (22:00)
[2017-09-23] MEDS ORDERED: ZOLPIDEM TARTRATE 5 MG TABLET PO PRN (22:00)
[2017-09-24] MEDS ORDERED: PRENATAL VITAMINS W/ FOLIC ACID TABLET (FP) PO SCH (10:00)
--- NOTE | 2017-09-24 12:29 | EKG ---
Test Reason : Blood Pressure : / mmHG Vent. Rate : 106 BPM Atrial Rate : 106 BPM P-R Int : 176 ms QRS Dur : 074 ms QT Int : 352 ms P-R-T Axes : 053 -02 025 degrees QTc Int : 467 ms SINUS TACHYCARDIA OTHERWISE NORMAL ECG WHEN COMPARED WITH ECG OF 21-MAY-2017 17:48, NONSPECIFIC T WAVE ABNORMALITY, WORSE IN LATERAL LEADS Confirmed by MD JADA, FELIPA ([id number]) on 09/24/2017 12:28:56 PM Referred By: Confirmed By:FELIPA ELIAS MD
--- NOTE | 2017-09-24 17:16 | HP ---
CIWA Score - CIWA Score Nausea/Vomitin Muscle Tremors: 3 Anxiety: 3 Agitation: 3 Paroxysmal Sweats: 3 Orientation: 0-Oriented Tacttile Disturbances: 1-Very Mild Itch/Numbness Auditory Disturbances: 0-None Visual Disturbances: 0-None Headache: 1-Very Mild CIWA-Ar Total Score: 17 Admission ROS S - HPI Allergies/Adverse Reactions: Allergies Allergy/AdvReac Type Severity Reaction Status Date / Time No Known Allergies Allergy Verified 09/23/17 09:52 - Ebola screening Have you traveled outside of the country in the last 21 days: No Have you had contact with anyone from an Ebola affected area: No Have you been sick,other than usual withdrawal symptoms: No Do you have a fever: No Patient History - Patient Medical History Hx Anemia: No Hx Asthma: No Hx Chronic Obstructive Pulmonary Disease (COPD): No Hx Cancer: No Hx Cardiac Disorders: No Hx Congestive Heart Failure: No Hx Hypertension: Yes (NON COMPLIANT WITH MEDS.) Hx Hypercholesterolemia: No Hx Pacemaker: No HX Cerebrovascular Accident: No Hx Seizures: No Hx Dementia: No Hx Diabetes: No Hx Gastrointestinal Disorders: No Hx Liver Disease: No Hx Genitourinary Disorders: No Hx Sexually Transmitted Disorders: No Hx Renal Disease (ESRD): No Hx Thyroid Disease: No Hx Human Immunodeficiency Virus (HIV): No Hx Hepatitis C: Yes (treated with epolus ) Hx Depression: Yes Hx Suicide Attempt: No (no si at this time) Hx Bipolar Disorder: No Hx Schizophrenia: No - Patient Surgical History Past Surgical History: No Hx Neurologic Surgery: No Hx Cataract Extraction: No Hx Cardiac Surgery: No Hx Lung Surgery: No Hx Breast Surgery: No Hx Breast Biopsy: No Hx Abdominal Surgery: No Hx Appendectomy: No Hx Cholecystectomy: No Hx Genitourinary Surgery: No Hx Section: No Hx Orthopedic Surgery: No Anesthesia Reaction: No - PPD History Previous Implant?: Yes Documented Results: Negative w/o proof Implanted On Prior R Admission?: Yes Date: 04/15/17 - Reproductive History Patient : No - Smoking Cessation Smoking history: Current every day smoker Have you smoked in the past 12 months: Yes Aproximately how many cigarettes per day: 10 Cigars Per Day: 0 Hx Chewing Tobacco Use: No Initiated information on smoking cessation: Yes - Substances Abused Alcohol Route: Oral Frequency: Daily Amount used: 2 6PKS BEER AND UP Age of first use: 16 Date of Last Use: 09/23/17 Oxycontin Route: Injection Frequency: Daily Age of first use: 14 Date of Last Use: 09/21/17 Family Disease History - Family Disease History Family Disease History: Heart Disease: Father (), Mother (dying - in a fci), Other: Father, Mother, Sister (three - living - healthy) BHS Breath Alcohol Content Breath Alcohol Content: 0.136 Urine Drug Screen - Results Urine Drug Screen Results: BZO-Benzodiazepines, TCA-Tricyclic Antidepress
[2017-09-25] MEDS ORDERED: diazePAM 5 MG TABLET PO SCH (10:00)
[2017-09-27] MEDS ORDERED: diazePAM 5 MG TABLET PO SCH (10:00)
== END 2017-09-23 15:33 | disposition left against medical advice (07) | DRG 894 ==
LOC: YASAS 09:10 → Y3N 12:43
PROVIDERS: ADMIT Internal Medicine; ATTEND Internal Medicine
PROC: HZ2ZZZZ Detoxification Services for Substance Abuse Treatment (ICD-10-PCS; principal; 2017-09-23)
DX: F10.20 Alcohol dependence, uncomplicated (principal); F10.230 Alcohol dependence with withdrawal, uncomplicated; F17.210 Nicotine dependence, cigarettes, uncomplicated; F19.24 Other psychoactive substance dependence with psychoactive substance-induced mood disorder; F32.9 Major depressive disorder, single episode, unspecified; G47.00 Insomnia, unspecified; I10 Essential (primary) hypertension; Z91.14 Patient's other noncompliance with medication regimen; B18.2 Chronic viral hepatitis C
CPT/HCPCS: 93005; 93010

== ENCOUNTER 2017-09-24 16:00 | Inpatient (IN) | payer OTHER ==
[2017-09-24 16:51] VITALS: BMI 28.3
--- NOTE | 2017-09-24 18:04 | HP ---
CIWA Score - CIWA Score Nausea/Vomitin Muscle Tremors: 3 Anxiety: 5 Agitation: 3 Paroxysmal Sweats: 3 Orientation: 0-Oriented Tacttile Disturbances: 0-None Auditory Disturbances: 0-None Visual Disturbances: 0-None Headache: 0-None Present CIWA-Ar Total Score: 17 Admission ROS BHS - HPI Chief Complaint: "I am an alcoholic and I need help" Allergies/Adverse Reactions: Allergies Allergy/AdvReac Type Severity Reaction Status Date / Time No Known Allergies Allergy Verified 09/23/17 09:52 History of Present Illness: 62 YEAR OLD MAN SEEKING DETOX FROM ALCOHOL. PT HAS HAD PREVIOUS DETOX, AND AN EPISODE OF REHAB AT [facility] IN [facility]. PT ENDORSES OVER 40 YEARS OF ALCOHOL INTOXICATION AND SAYS HE HAS NEVER BEEN SOBER. LAST DRINK WAS A FEW MINUTES AGO PT WAS HERE YESTERDAY AND SIGNED OUT AMA IN LESS THAN 24HRS BECAUSE "I WAS STUPID". PT HAS A HX OF HTN Exam Limitations: No Limitations - Ebola screening Have you traveled outside of the country in the last 21 days: Yes Have you had contact with anyone from an Ebola affected area: No Have you been sick,other than usual withdrawal symptoms: No Do you have a fever: No - Review of Systems Constitutional: Diaphoresis EENT: reports: Nose Congestion Respiratory: reports: No Symptoms reported Cardiac: reports: No Symptoms Reported GI: reports: No Symptoms Reported : reports: No Symptoms Reported Musculoskeletal: reports: No Symptoms Reported Integumentary: reports: Flushing Neuro: reports: Tremors, Unsteady Gait Endocrine: reports: [place] Hematology: reports: No Symptoms Reported Psychiatric: reports: Agitated, Anxious Patient History - Patient Medical History Hx Anemia: No Hx Asthma: No Hx Chronic Obstructive Pulmonary Disease (COPD): No Hx Cancer: No Hx Cardiac Disorders: No Hx Congestive Heart Failure: No Hx Hypertension: Yes ( ON METOPROLOL BUT NON COMPLIANT WITH MEDS.) Hx Hypercholesterolemia: No Hx Pacemaker: No HX Cerebrovascular Accident: No Hx Seizures: No Hx Dementia: No Hx Diabetes: No Hx Gastrointestinal Disorders: No Hx Liver Disease: No Hx Genitourinary Disorders: No Hx Sexually Transmitted Disorders: No Hx Renal Disease (ESRD): No Hx Thyroid Disease: No Hx Human Immunodeficiency Virus (HIV): No Hx Hepatitis C: Yes (treated with epolus ) Hx Depression: Yes Hx Suicide Attempt: No (no si at this time) Hx Bipolar Disorder: No Hx Schizophrenia: No - Patient Surgical History Past Surgical History: No Hx Neurologic Surgery: No Hx Cataract Extraction: No Hx Cardiac Surgery: No Hx Lung Surgery: No Hx Breast Surgery: No Hx Breast Biopsy: No Hx Abdominal Surgery: No Hx Appendectomy: No Hx Cholecystectomy: No Hx Genitourinary Surgery: No Hx Section: No (MALE PT ) Hx Orthopedic Surgery: No Anesthesia Reaction: No - PPD History Date: 04/15/17 - Smoking Cessation Smoking history: Current every day smoker Have you smoked in the past 12 months: Yes Aproximately how many cigarettes per day: 10 Cigars Per Day: 0 Hx Chewing Tobacco Use: No Initiated information on smoking cessation: Yes 'Breaking Loose' booklet given: 09/24/17 - Substance & Tx. History Hx Alcohol Use: Yes (VODKA- 1/2 PINT/DAY, BEER 2(6 PACKS OF 40OZ)) Family Disease History - Family Disease History Family Disease History: Heart Disease: Father (), Mother (dying - in a fci), Other: Father, Mother, Sister (three - living - healthy) Admission Physical Exam [facility] - Vital Signs Vital Signs: Vital Signs - 24 hr 09/24/17 16:49 Temperature 98.3 F Pulse Rate 126 H Respiratory 20 Rate Blood Pressure 155/92 - Physical General Appearance: Yes: Disheveled, Moderate Distress, Alcohol on Breath, Irritable HEENTM: Yes: Nasal Congestion Respiratory: Yes: Chest Non-Tender, Lungs Clear Neck: Yes: No masses,lesions,Nodules, Supple, Trachea in good position Breast: Yes: Breast Exam Deferred Cardiology: Yes: Regular Rhythm, Regular Rate, S1, S2 Abdominal: Yes: Normal Bowel Sounds, Non Tender, Distended Genitourinary: Yes: Within Normal Limits Back: Yes: Normal Inspection Musculoskeletal: Yes: full range of Motion, Other (GAIT SLIGHTLY UNSTEADY) - Diagnostic (1) Alcohol dependence with uncomplicated withdrawal Current Visit: No Status: Acute (2) Sedative hypnotic or anxiolytic dependence Current Visit: Yes Status: Acute (3) Nicotine dependence Current Visit: No Status: Chronic Qualifiers: Nicotine product type: cigarettes Substance use status: in withdrawal Qualified Code(s): F17.213 - Nicotine dependence, cigarettes, with withdrawal (4) HTN (hypertension) Current Visit: No Status: Chronic Qualifiers: Hypertension type: essential hypertension Qualified Code(s): I10 - Essential (primary) hypertension Cleared for Admission [facility] - Detox or Rehab [facility] Level of Care: Medically Managed Detox Regimen/Protocol: Librium [facility] Breath Alcohol Content Breath Alcohol Content: 0.169 Urine Drug Screen - Results Drug Screen Negative: No Urine Drug Screen Results: BZO-Benzodiazepines
[2017-09-24] MEDS ORDERED: MAGNESIUM HYDROX 2400MG/30ML ORAL SUSPENSION 30 ML CUP PO PRN (18:24)
[2017-09-24] MEDS ORDERED: LOPERAMIDE HCL 2 MG CAPSULE PO PRN (18:24)
[2017-09-24] MEDS ORDERED: MENTHOL/PHENOL 1 EACH UD MM PRN (18:24)
[2017-09-24] MEDS ORDERED: guaiFENesin/D-METHORPHAN HB 10 ML UNIT-DOSE CUPS PO PRN (18:24)
[2017-09-24] MEDS ORDERED: MAG HYDROX/AL HYDROX/SIMETH 30 ML UNIT-DOSE CUP PO PRN (18:24)
[2017-09-24] MEDS ORDERED: MAGNESIUM CITRATE 300 ML BOTTLE PO PRN (18:24)
[2017-09-24] MEDS ORDERED: ACETAMINOPHEN 325 MG TABLET (FP) PO PRN (18:24)
[2017-09-24] MEDS ORDERED: P-EPHED 60MG/TRIPROLIDI 2.5MG TABLET PO PRN (18:24)
[2017-09-24] MEDS ORDERED: IBUPROFEN 400 MG TABLET (FP) PO PRN (18:24)
[2017-09-24] MEDS ORDERED: THIAMINE HCL 100 MG TABLET (FP) PO SCH (22:00)
[2017-09-24] MEDS: chlordiazePOXIDE HCL 25 MG CAPSULE PO SCH (22:38)
[2017-09-24] MEDS: METOPROLOL TARTRATE 25 MG TABLET (FP) PO SCH (22:38)
[2017-09-25 00:05] LABS: URINE APPEARANCE CLEAR; URINE BILIRUBIN NEGATIVE (NEGATIVE); URINE BLOOD NEGATIVE (NEGATIVE); URINE COLOR STRAW; URINE GLUCOSE (UA) NEGATIVE (NEGATIVE); URINE KETONE NEGATIVE (NEGATIVE); URINE LEUK ESTERASE NEGATIVE (NEGATIVE); URINE NITRITE NEGATIVE (NEGATIVE); URINE UROBILINOGEN NEGATIVE mg/dL (0.2-1.0)
[2017-09-25 00:13] LABS: URINE PROTEIN 1+ (NEGATIVE)
[2017-09-25 00:22] LABS: URINE MUCUS RARE
[2017-09-25] MEDS: hydrOXYzine PAMOATE 50 MG CAPSULE (FP) PO PRN ×2 (00:38→13:52)
[2017-09-25] MEDS: chlordiazePOXIDE HCL 25 MG CAPSULE PO PRN ×3 (02:33→12:53)
[2017-09-25] MEDS: chlordiazePOXIDE HCL 25 MG CAPSULE PO SCH ×3 (05:08→16:48)
[2017-09-25] MEDS ORDERED: ZOLPIDEM TARTRATE 5 MG TABLET PO PRN (09:30)
--- NOTE | 2017-09-25 09:30 | PN ---
[facility] Progress Note Note: Patient was admitted recently admited on 09/23/[address] Aleman. Please refer to Dr Aleman' note. Ambien 5 mg po HS prn for sleep will be resumed
[2017-09-25] MEDS ORDERED: PRENATAL VITAMINS W/ FOLIC ACID TABLET (FP) PO SCH (10:00)
[2017-09-25] MEDS: METOPROLOL TARTRATE 25 MG TABLET (FP) PO SCH (10:30)
[2017-09-25 10:38] LABS: HEMATOCRIT 48.2 % (35.4-49); MCH 32.8 pg (25.7-33.7); MCHC 33.2 g/dl (32.0-35.9); MEAN CELL VOLUME 98.7 fl (80-96); MEAN PLT VOLUME 8.1 fl (7.5-11.1); PLATELET COUNT 326 K/MM3 (134-434); RBC 4.88 M/mm3 (4.00-5.60); RDW 14.4 % (11.9-15.9); WHITE BLOOD COUNT 9.4 K/mm3 (4.0-10.0)
[2017-09-25 10:53] LABS: ALBUMIN 3.6 g/dl (3.4-5.0); ANION GAP 10 (8-16); BLOOD UREA NITROGEN 10 mg/dL (7-18); CHLORIDE 107 mmol/L (98-107); CO2 26 mmol/L (21-32); GLUCOSE,RANDOM 127 mg/dL (74-106); POTASSIUM 4.5 mmol/L (3.5-5.1); SODIUM 143 mmol/L (136-145)
[2017-09-25 10:58] LABS: ALK PHOS 93 U/L (45-117); BILIRUBIN,TOTAL 0.5 mg/dL (0.2-1.0); CREATININE 0.9 mg/dL (0.7-1.3); SGOT/AST 20 U/L (15-37); SGPT/ALT 34 U/L (12-78); TOT PROT 6.9 g/dl (6.4-8.2)
--- NOTE | 2017-09-25 11:42 | EKG ---
Test Reason : Blood Pressure : / mmHG Vent. Rate : 111 BPM Atrial Rate : 111 BPM P-R Int : 168 ms QRS Dur : 086 ms QT Int : 344 ms P-R-T Axes : 053 -05 030 degrees QTc Int : 467 ms SINUS TACHYCARDIA OTHERWISE NORMAL ECG WHEN COMPARED WITH ECG OF 23-SEP-2017 13:48, NO SIGNIFICANT CHANGE WAS FOUND Confirmed by MD JADA, FELIPA ([id number]) on 09/25/2017 11:42:31 AM Referred By: Margarito Zavala Confirmed By:FELIPA ELIAS MD
--- NOTE | 2017-09-25 13:42 | PN ---
S CIWA - CIWA Score Nausea/Vomitin-Int. Nausea w/Dry Heave Muscle Tremors: 4-Moderate,w/Arms Extend Anxiety: 4-Mod. Anxious/Guarded Agitation: 4-Moderately Restless Paroxysmal Sweats: 4-Forehead w/Sweat Beads Orientation: 0-Oriented Tacttile Disturbances: 0-None Auditory Disturbances: 0-None Visual Disturbances: 0-None Headache: 0-None Present CIWA-Ar Total Score: 20 S COWS - Scale Resting Pulse: 1= MS 81-100 Sweatin=Flushed/Facial Moisture Restless Observation: 1= Difficult to Sit Still Pupil Size: 0= Normal to Room Light Bone or Joint Aches: 2= Severe Diffuse Aches Runny Nose/ Eye Tearin= Runny Nose/Eyes GI Upset > 30mins: 2= Nausea/Diarrhea Tremor Observation of Outstretched Hands: 2= Slight Tremor Visible Yawning Observation: 0= None Anxiety or Irritability: 2=Irritable/Anxious Goose Flesh Skin: 0=Smooth Skin COWS Score: 14 S Progress Note (SOAP) Subjective: Tremor, chills, sweating, nausea, interrupted sleep Objective: 09/25/17 13:38 Last Vital Signs Temp Pulse Resp BP Pulse Ox 98.7 F 87 18 136/78 09/25/17 09:53 09/25/17 09:53 09/25/17 09:53 09/25/17 09:53 Laboratory Tests 09/24/17 09/25/17 09/25/17 23:30 07:30 07:30 WBC 9.4 RBC 4.88 Hgb 16.0 Hct 48.2 MCV 98.7 H MCH 32.8 MCHC 33.2 RDW 14.4 Plt Count 326 MPV 8.1 Sodium 143 Potassium 4.5 Chloride 107 Carbon Dioxide 26 D Anion Gap 10 BUN 10 D Creatinine 0.9 Creat Clearance w eGFR > 60 Random Glucose 127 H Calcium 8.0 L Total Bilirubin 0.5 AST 20 ALT 34 D Alkaline Phosphatase 93 Total Protein 6.9 Albumin 3.6 Urine Color Straw Urine Appearance Clear Urine pH 6.0 Ur Specific [place] 1.006 Urine Protein 1+ H Urine Glucose (UA) Negative Urine Ketones Negative Urine Blood Negative Urine Nitrite Negative Urine Bilirubin Negative Urine Urobilinogen Negative Ur Leukocyte Esterase Negative Urine WBC (Auto) 1 Urine RBC (Auto) 2 Urine Mucus Rare RPR Titer HIV 1&2 Antibody Screen HIV P24 Antigen 09/25/17 09/25/17 07:30 07:30 WBC RBC Hgb Hct MCV MCH MCHC RDW Plt Count MPV Sodium Potassium Chloride Carbon Dioxide Anion Gap BUN Creatinine Creat Clearance w eGFR Random Glucose Calcium Total Bilirubin AST ALT Alkaline Phosphatase Total Protein Albumin Urine Color Urine Appearance Urine pH Ur Specific [place] Urine Protein Urine Glucose (UA) Urine Ketones Urine Blood Urine Nitrite Urine Bilirubin Urine Urobilinogen Ur Leukocyte Esterase Urine WBC (Auto) Urine RBC (Auto) Urine Mucus RPR Titer Nonreactive HIV 1&2 Antibody Screen Negative HIV P24 Antigen Negative Labs noted: abnormal UA Assessment: 09/25/17 13:41 Withdrawal symptoms Noted with abnormal UA Plan: Continue detox Abnormal UA: encouraged to drink lots of water, repeat UA
[2017-09-25 17:44] VITALS: BP 122/76; PULSE 74; TEMP 98.1
--- NOTE | 2017-09-25 18:52 | DS ---
[facility] Detox Discharge Summary Admission Date: 09/24/17 Discharge Date: 09/25/17 - History Additional Comments: Was informed by RN Silver that pt stated he wanted to leave despite repeated education to the contrary. Pt did not wait for provider evaluation/ education before departing floor. Pt was said to be A & O x 3 and anxious. - Physical Exam Results Vital Signs: Vital Signs Temperature 98.1 F 09/25/17 17:44 Pulse Rate 74 09/25/17 17:44 Respiratory Rate 16 09/25/17 17:44 Blood Pressure 122/76 09/25/17 17:44 O2 Sat by Pulse Oximetry (%) - Medication Discharge Medications: Ambulatory Orders Amlodipine Besylate [Norvasc -] 10 mg PO DAILY 04/13/17 Metoprolol Tartrate [Lopressor -] 25 mg PO BID 09/23/17 - Diagnosis (1) Alcohol dependence with uncomplicated withdrawal Status: Acute (2) Sedative hypnotic or anxiolytic dependence Status: Acute (3) Nicotine dependence Status: Chronic Qualifiers: Nicotine product type: cigarettes Substance use status: in withdrawal Qualified Code(s): F17.213 - Nicotine dependence, cigarettes, with withdrawal (4) HTN (hypertension) Status: Chronic Qualifiers: Hypertension type: essential hypertension Qualified Code(s): I10 - Essential (primary) hypertension - AMA Did Patient Leave Against Medical Advice: Yes
[2017-09-25] MEDS ORDERED: chlordiazePOXIDE HCL 25 MG CAPSULE PO SCH (23:00)
[2017-09-26] MEDS ORDERED: chlordiazePOXIDE 5 MG CAPSULE PO SCH (23:00)
[2017-09-27] MEDS ORDERED: chlordiazePOXIDE HCL 10 MG CAPSULE PO SCH (23:00)
== END 2017-09-25 18:03 | disposition left against medical advice (07) | DRG 894 ==
LOC: YASAS 16:00 → Y3N 19:21
PROVIDERS: ADMIT Internal Medicine; ATTEND Internal Medicine
PROC: HZ2ZZZZ Detoxification Services for Substance Abuse Treatment (ICD-10-PCS; principal; 2017-09-24)
DX: F10.230 Alcohol dependence with withdrawal, uncomplicated (principal); F11.20 Opioid dependence, uncomplicated; F17.213 Nicotine dependence, cigarettes, with withdrawal; I10 Essential (primary) hypertension; G47.00 Insomnia, unspecified; R82.90 Unspecified abnormal findings in urine; Z91.14 Patient's other noncompliance with medication regimen
CPT/HCPCS: 36415; 80053; 81003; 81015; 85027; 86593; 87389; 93005; 93010

== ENCOUNTER 2017-12-17 11:58 | Emergency (ER) | payer OTHER ==
--- NOTE | 2017-12-17 12:11 | PDOC ---
History of Present Illness - General Chief Complaint: Pain Stated Complaint: ABDOMINAL PAIN Time Seen by Provider: 12/17/17 12:02 - History of Present Illness Initial Comments: 12/17/17 12:40 The patient is a 62 year old male with a history of HTN, Hep C, Alcohol abuse, heroin abuse, opioid abuse who presents for evaluation of abdominal pain. The patient reports that he is a chronic alcoholic and was recently evaluated at [facility] ER yesterday for abdominal pain. He reports that his last drink was 2 days ago and he has been experiencing crampy, burning epigastric abdominal pain since that time. He states that he had lab work, x-rays, CT scan which was all negative and he was discharged. He states that he received a dose of librium in their ER which helped with his symptoms, but did not receive a prescription and has been unable to get into detox prompting his presentation to the ED for evaluation. He otherwise denies fevers, chills, SOB , chest pain, nausea, vomiting, or changes with urination or bowel movements. Past History - Past Medical History Allergies/Adverse Reactions: Allergies Allergy/AdvReac Type Severity Reaction Status Date / Time No Known Allergies Allergy Verified 12/17/17 11:59 Home Medications: Ambulatory Orders Metoprolol Tartrate [Lopressor -] 25 mg PO BID 09/23/17 Sertraline HCl [Zoloft -] 25 mg PO BID 12/17/17 Anemia: No Asthma: No Cancer: No Cardiac Disorders: No CVA: No COPD: No CHF: No Dementia: No Diabetes: No GI Disorders: No Disorders: No HTN: Yes Hypercholesterolemia: No Kidney Stones: No Liver Disease: No Seizures: No Thyroid Disease: No - Surgical History Abdominal Surgery: No Appendectomy: No Cardiac Surgery: No Cholecystectomy: No Lung Surgery: No Neurologic Surgery: No Orthopedic Surgery: No - Reproductive History Testicular Surgery: No - Suicide/Smoking/Psychosocial Hx Smoking History: Current every day smoker Have you smoked in the past 12 months: Yes Number of Cigarettes Smoked Daily: 10 Cigars Per Day: 0 'Breaking Loose' booklet given: 09/24/17 Hx Alcohol Use: Yes (VODKA- 1/2 PINT/DAY, BEER 2(6 PACKS OF 40OZ)) Drug/Substance Use Hx: Yes Substance Use Type: Alcohol, Heroin, Opiates, Prescribed, Tranquilizers Hx Substance Use Treatment: Yes Review of Systems - Review of Systems Comments:: 12/17/17 12:44 Constitutional: No fevers, chills, fatigue, malaise HEENT: No Rhinorrhea, nasal congestion, visual changes Cardiovascular: No chest pain, syncope, palpitations, lightheadedness Respiratory: No Cough, SOB, Hemoptysis, Gastrointestinal: Epigastric Abdominal pain. No Nausea, Vomiting, Constipation , Diarrhea, Melena Genitourinary: No Dysuria, Frequency, Urgency, Hesitancy, Hematuria, Flank pain Musculoskeletal: No Myalgia, arthralgia Skin: No rashes, itching, bruising, pallor Neurologic: No Headache, Dizziness, Numbness, Weakness, or Tingling Psychiatric: No Hallucinations. No SI or HI *Physical Exam - Physical Exam Comments: 12/17/17 12:45 General Appearance: Nourished. No Apparent Distress HEENT: EOMI, ROYER. No tongue fasciculations noted. No Pharyngeal Erythema, Tonsillar Exudate, Tonsillar Erythema Neck: No Cervical Lymphadenopathy Respiratory/Chest: Lungs Clear, Normal Breath Sounds. No Crackles, Rales, Rhonchi, Wheezing Cardiovascular: Regular Rhythm, Regular Rate. No Murmur, Gallops, Rubs Gastrointestinal/Abdominal: Normal Bowel Sounds, Soft. Mild tenderness to palpation of the epigastric region. No Guarding, Rebound, Musculoskeletal: No CVA Tenderness Extremity: Normal Capillary Refill Integumentary: Normal Color, Dry, Warm Neurologic: Fully Oriented, Alert, Normal Mood/Affect, Normal Response, No Tremulous noted with arm extension. Medical Decision Making - Medical Decision Making 12/17/17 12:46 The patient is a 62 year old male with a history of HTN, Hep C, Alcohol abuse, heroin abuse, opioid abuse who presents for evaluation of abdominal pain. Differential includes but is not limited to: Alcohol withdrawal, Alcoholic Gastritis, Pancreatitis, infectious, metabolic derangement. Given the patient' s history of alcohol abuse with last drink 2 days ago, it is possible his symptoms are due to an alcoholic gastritis. However, we will obtain a cbc, cmp , lipase, troponin to evaluate further for possible etiologies. We will attempt to get in contact with [facility] for records as well as [facility] detox for bed availablity for detox. We will continue to monitor and reassess in the meantime. 12/17/17 12:51 We discussed the case with [facility] detox who is aware of the patient and will evaluate him for detox and perform lab work on him at their facility. We discussed this with the patient who wished to present directly to [facility]. The patient does not appear intoxicated and is able to ambulate without difficulty. We are comfortable discharging the patient to detox at this time and have discussed return precautions with the patient who voiced understanding and is agreeable with the plan. *DC/Admit/Observation/Transfer Diagnosis at time of Disposition: Alcohol dependence with uncomplicated withdrawal Abdominal pain Qualifiers: Abdominal location: unspecified location Qualified Code(s): R10.9 - Unspecified abdominal pain - Discharge Dispostion Disposition: HOME Condition at time of disposition: Stable Admit: No - Referrals - Patient Instructions Printed Discharge Instructions: DI for Alcohol Abuse, DI for Abdominal Pain- Adult Additional Instructions: Please return to the ER if you experience concerning or worsening symptoms including worsening pain, fevers, or vomiting. We have discussed your case with [facility] detox and they are holding a bed for you. It is EXTREMELY important that you present to [facility] detox immediately after discharge from the ER for further management of alcohol withdrawal and it will benefit you to be managed at their facility. - Post Discharge Activity
--- NOTE | 2017-12-17 12:18 | PDOC ---
Attending Attestation - Resident Resident Name: Reynold Foreman - ED Attending Attestation I have performed the following: I have examined & evaluated the patient, The case was reviewed & discussed with the resident, I agree w/resident's findings & plan, Exceptions are as noted - HPI HPI: 12/17/17 12:51 62-year-old male with a history of polysubstance abuse, current alcohol abuse ( last drink 2 days ago) presents to the emergency Department requesting Librium for epigastric abdominal pain. Patient states he often gets epigastric burning pain when he is withdrawing from alcohol. He reports he was at [facility] yesterday where he reportedly had negative labs and negative CT scan. He reports this pain at the time resolved with Librium but he was not given a prescription which is why he presents to the emergency department today. Patient would like to go to detox, however he is not sure if he can be seen at [facility] because he left [place] a few months ago. He denies any fevers, chills, chest pain, shortness of breath, nausea/vomiting, hallucinations. He reports mild tremors in his hands. He denies any drug use. - Physicial Exam PE: 12/17/17 12:54 GENERAL: Awake, alert, and fully oriented, in no acute distress HEAD: No signs of trauma EYES: PERRLA, EOMI, sclera anicteric, conjunctiva clear ENT: Auricles normal inspection, hearing grossly normal, nares patent, oropharynx clear without exudates. Moist mucosa. No tongue fasiculations NECK: Normal ROM, supple, no lymphadenopathy, JVD, or masses LUNGS: Breath sounds equal, clear to auscultation bilaterally. No wheezes, and no crackles HEART: Regular rate and rhythm, normal S1 and S2, no murmurs, rubs or gallops ABDOMEN: Soft, nontender, normoactive bowel sounds. No guarding, no rebound. No masses. Benign abd exam. EXTREMITIES: Normal range of motion, no edema. No clubbing or cyanosis. No cords, erythema, or tenderness. +mild tremors with extension of UE. NEUROLOGICAL: Normal speech, cranial nerves intact, negative pronator drift, 5/ 5 strength in all 4 extremities, normal sensation to light touch in all 4 extremities, normal cerebellar exam, normal gait, normal reflexes and tone SKIN: Warm, Dry, normal turgor, no rashes or lesions noted. - Medical Decision Making 12/17/17 12:57 62yo M hx PSA presents to the ED requesting Librium script for etoh withdrawal until he can go to his preferred detox on Tuesday. Pt is mildly hypertensive ( although reports he is not taking his BP meds), also mildly tremulous. CIWA score is 4 consistent with very mild withdrawal. Abd exam benign. Pt declines labs/imaging at this time as he states he just had them done yesterday. I discussed with patient that we can not offer him a librium script as it is not safe to manage his etoh withdrawal on his own as an outpatient. I offered to call [facility] to see if they had any beds, which he allowed me to do on his behalf Case discussed with [employer] Diana Steve at [facility], who accepts the patient to initiate etoh detox tx. Discussed this with the patient, and offered a ride over to [facility]. Pt states he will drive over there at this time as he has his car in our parking lot. Pt appears to be clinically sober, free from distracting injury, with intact and judgment and reason and in my opinion has the capacity to make decisions at this time. We will hold off on giving any librium, or other benzo treatment until he arrives at [facility] for treatment. I discussed the physical exam findings and final diagnoses with the patient. I answered all of the patient's questions. The patient was satisfied with the care received and felt comfortable with the discharge plan and treatment plan. The patient will present to [facility] immediately (pt states he knows where it is as he has been there twice before) and will return to the Emergency Department with any new, persistent or worsening symptoms.
[2017-12-17] MEDS ORDERED: chlordiazePOXIDE HCL 25 MG CAPSULE PO ONE (12:26)
[2017-12-17 12:39] VITALS: BP 162/95; PULSE 63; TEMP 97.9; BMI 29.1
== END 2017-12-17 13:05 | disposition home or self-care (01) ==
LOC: FER 11:58
DX: F10.20 Alcohol dependence, uncomplicated (principal); F11.10 Opioid abuse, uncomplicated; F10.239 Alcohol dependence with withdrawal, unspecified; I10 Essential (primary) hypertension; B19.20 Unspecified viral hepatitis C without hepatic coma; F17.210 Nicotine dependence, cigarettes, uncomplicated
CPT/HCPCS: 99282-25

== ENCOUNTER 2017-12-31 08:51 | Inpatient (IN) | payer OTHER ==
[2017-12-31 16:53] VITALS: BMI 28.1
--- NOTE | 2017-12-31 19:38 | HP ---
COWS - Scale Resting Pulse: 0= SD 80 or Below Sweatin=Flushed/Facial Moisture Restless Observation: 3= Extraneous Movement Pupil Size: 1= Pupils >than Normal Bone or Joint Aches: 2= Severe Diffuse Aches Runny Nose/ Eye Tearin= Runny Nose/Eyes GI Upset > 30mins: 2= Nausea/Diarrhea Tremor Observation: 2= Slight Tremor Visible Yawning Observation: 1= 1-2x During Session Anxiety or Irritability: 2=Irritable/Anxious Goose Flesh Skin: 3=Piloerection COWS Score: 20 CIWA Score - CIWA Score Nausea/Vomitin Muscle Tremors: 3 Anxiety: 2 Agitation: 2 Paroxysmal Sweats: 2 Orientation: 0-Oriented Tacttile Disturbances: 1-Very Mild Itch/Numbness Auditory Disturbances: 1-Very Mild Visual Disturbances: 1-Very Mild Sensitivity Headache: 2-Mild CIWA-Ar Total Score: 17 Admission ROS BHS - HPI Chief Complaint: I need help with the withdrawal Allergies/Adverse Reactions: Allergies Allergy/AdvReac Type Severity Reaction Status Date / Time No Known Allergies Allergy Verified 12/31/17 17:32 History of Present Illness: 62 y/o old man with alcohol and xanax dependence presents for detox. Patient has presented to [facility] several times for detox but always leaves without being seen. His last treatment was in August of this year. Exam Limitations: No Limitations - Ebola screening Have you traveled outside of the country in the last 21 days: No Have you had contact with anyone from an Ebola affected area: No Have you been sick,other than usual withdrawal symptoms: No Do you have a fever: No - Review of Systems Constitutional: Chills, Diaphoresis, Loss of Appetite, Changes in sleep EENT: reports: Nose Congestion Respiratory: reports: No Symptoms reported Cardiac: reports: No Symptoms Reported GI: reports: Poor Appetite, Poor Fluid Intake : reports: No Symptoms Reported Musculoskeletal: reports: Back Pain, Joint Pain, Muscle Pain Neuro: reports: Headache, Numbness, Tremors Endocrine: reports: No Symptoms Reported Hematology: reports: Anemia Psychiatric: reports: Depressed Other Systems: Reviewed and Negative Patient History - Patient Medical History Hx Anemia: No Hx Asthma: No Hx Chronic Obstructive Pulmonary Disease (COPD): No Hx Cancer: No Hx Cardiac Disorders: No Hx Congestive Heart Failure: No Hx Hypertension: Yes Hx Hypercholesterolemia: No Hx Pacemaker: No HX Cerebrovascular Accident: No Hx Seizures: No Hx Dementia: No Hx Diabetes: No Hx Gastrointestinal Disorders: No Hx Liver Disease: No Hx Genitourinary Disorders: No Hx Sexually Transmitted Disorders: No Hx Renal Disease (ESRD): No Hx Thyroid Disease: No Hx Human Immunodeficiency Virus (HIV): No Hx Hepatitis C: Yes (treated with epolus ) Hx Depression: Yes Hx Suicide Attempt: No Hx Bipolar Disorder: No Hx Schizophrenia: No - Patient Surgical History Past Surgical History: No - PPD History Previous Implant?: Yes Documented Results: Negative w/proof Implanted On Prior [facility] Admission?: Yes Date: 04/15/17 Results: NEGATIVE PPD to be Administered?: Yes - Smoking Cessation Smoking history: Current every day smoker Have you smoked in the past 12 months: Yes Aproximately how many cigarettes per day: 10 Cigars Per Day: 0 Hx Chewing Tobacco Use: No Initiated information on smoking cessation: Yes 'Breaking Loose' booklet given: 12/31/17 - Substance & Tx. History Hx Alcohol Use: Yes (beer, vodka) Hx Substance Use: Yes Substance Use Type: Alcohol, Tranquilizers Hx Substance Use Treatment: Yes - Substances Abused Alcohol Route: Oral Frequency: Daily Amount used: Beer 2 6 pack Age of first use: 16 Date of Last Use: 12/31/17 Family Disease History - Family Disease History Family Disease History: Heart Disease: Father (), Mother, Other: Father Admission Physical Exam BHS - Vital Signs Vital Signs: Vital Signs - 24 hr 12/31/17 16:51 Temperature 97.6 F Pulse Rate 75 Respiratory 18 Rate Blood Pressure 145/72 - Physical General Appearance: Yes: Other (drowsy/sleepy) HEENTM: Yes: Hearing grossly Normal, Normal ENT Inspection, Tm's normal Respiratory: Yes: Chest Non-Tender, Lungs Clear, No Respiratory Distress, No Accessory Muscle Use Neck: Yes: No masses,lesions,Nodules Breast: Yes: Breast Exam Deferred Cardiology: Yes: Regular Rhythm, Regular Rate Abdominal: Yes: Normal Bowel Sounds, Non Tender Genitourinary: Yes: Within Normal Limits Back: Yes: Normal Inspection Extremities: Yes: Normal Inspection, Normal Range of Motion Neurological: Yes: pantograph transferrer II-XII NML intact, Normal Response, Other (mostly sleeping) Lymphatic: Yes: Within Normal Limits - Diagnostic (1) Alcohol dependence with uncomplicated withdrawal Current Visit: Yes Status: Acute (2) Sedative hypnotic or anxiolytic dependence Current Visit: Yes Status: Acute (3) HTN (hypertension) Current Visit: Yes Status: Chronic Qualifiers: Hypertension type: essential hypertension Qualified Code(s): I10 - Essential (primary) hypertension (4) Nicotine dependence Current Visit: Yes Status: Acute Qualifiers: Nicotine product type: cigarettes Substance use status: in withdrawal Qualified Code(s): F17.213 - Nicotine dependence, cigarettes, with withdrawal Cleared for Admission BHS - Detox or Rehab [facility] Level of Care: Medically Managed Detox Regimen/Protocol: Librium [facility] Breath Alcohol Content Breath Alcohol Content: 0.259 Urine Drug Screen - Results Drug Screen Negative: No Urine Drug Screen Results: BZO-Benzodiazepines, TCA-Tricyclic Antidepress
[2017-12-31] MEDS ORDERED: MAGNESIUM HYDROX 2400MG/30ML ORAL SUSPENSION 30 ML CUP PO PRN (19:42)
[2017-12-31] MEDS ORDERED: NICOTINE POLACRILEX 2 MG GUM BUC PRN (19:42)
[2017-12-31] MEDS ORDERED: MAG HYDROX/AL HYDROX/SIMETH 30 ML UNIT-DOSE CUP PO PRN (19:42)
[2017-12-31] MEDS ORDERED: ACETAMINOPHEN 325 MG TABLET (FP) PO PRN (19:42)
[2017-12-31] MEDS ORDERED: hydrOXYzine PAMOATE 50 MG CAPSULE (FP) PO PRN (19:42)
[2017-12-31] MEDS ORDERED: P-EPHED 60MG/TRIPROLIDI 2.5MG TABLET PO PRN (19:42)
[2017-12-31] MEDS ORDERED: LOPERAMIDE HCL 2 MG CAPSULE PO PRN (19:42)
[2017-12-31] MEDS ORDERED: chlordiazePOXIDE HCL 25 MG CAPSULE PO ONE (19:42)
[2017-12-31] MEDS ORDERED: guaiFENesin/D-METHORPHAN HB 10 ML UNIT-DOSE CUPS PO PRN (19:42)
[2017-12-31] MEDS ORDERED: MENTHOL/PHENOL 1 EACH UD MM PRN (19:42)
[2017-12-31] MEDS ORDERED: IBUPROFEN 400 MG TABLET (FP) PO PRN (19:42)
[2017-12-31] MEDS ORDERED: MAGNESIUM CITRATE 300 ML BOTTLE PO PRN (19:42)
[2017-12-31] MEDS ORDERED: chlordiazePOXIDE HCL 25 MG CAPSULE PO PRN (19:42)
[2017-12-31] MEDS: NICOTINE 14 MG/24 HOURS TOPICAL PATCH TD SCH (19:57)
[2017-12-31] MEDS ORDERED: MELATONIN 5 MG TABLETS PO PRN (22:00)
[2017-12-31 22:34] LABS: URINE APPEARANCE CLEAR; URINE BILIRUBIN NEGATIVE (<2.0 mg/dL); URINE COLOR LTYELLOW; URINE GLUCOSE (UA) NEGATIVE (NEGATIVE); URINE KETONE NEGATIVE (NEGATIVE); URINE LEUK ESTERASE NEGATIVE (NEGATIVE); URINE NITRITE NEGATIVE (NEGATIVE); URINE PROTEIN NEGATIVE (NEGATIVE); URINE UROBILINOGEN NEGATIVE mg/dL (0.2-1.0)
[2017-12-31] MEDS: chlordiazePOXIDE HCL 25 MG CAPSULE PO SCH (22:48)
[2017-12-31] MEDS: THIAMINE HCL 100 MG TABLET (FP) PO SCH (22:49)
[2018-01-01] MEDS: chlordiazePOXIDE HCL 25 MG CAPSULE PO SCH ×4 (06:51→22:17)
[2018-01-01 09:58] LABS: HEMATOCRIT 43.9 % (35.4-49); HEMOGLOBIN 15.1 GM/dL (11.7-16.9); MCH 33.7 pg (25.7-33.7); MCHC 34.3 g/dl (32.0-35.9); MEAN CELL VOLUME 98.3 fl (80-96); MEAN PLT VOLUME 8.2 fl (7.5-11.1); PLATELET COUNT 325 K/MM3 (134-434); RBC 4.47 M/mm3 (4.00-5.60); RDW 14.3 % (11.9-15.9); WHITE BLOOD COUNT 7.8 K/mm3 (4.0-10.0)
[2018-01-01 09:59] LABS: CHLORIDE 112 mmol/L (98-107); POTASSIUM 4.3 mmol/L (3.5-5.1); SODIUM 144 mmol/L (136-145)
[2018-01-01 10:16] LABS: ALBUMIN 3.2 g/dl (3.4-5.0); ALK PHOS 87 U/L (45-117); ANION GAP 6 (8-16); BILIRUBIN,TOTAL 0.7 mg/dL (0.2-1.0); BLOOD UREA NITROGEN 10 mg/dL (7-18); CO2 26 mmol/L (21-32); CREATININE 0.6 mg/dL (0.7-1.3); GLUCOSE,RANDOM 75 mg/dL (74-106); SGOT/AST 19 U/L (15-37); SGPT/ALT 16 U/L (12-78); TOT PROT 6.1 g/dl (6.4-8.2)
[2018-01-01] MEDS: NICOTINE 14 MG/24 HOURS TOPICAL PATCH TD SCH (10:21)
[2018-01-01] MEDS: PRENATAL VITAMINS W/ FOLIC ACID TABLET (FP) PO SCH (10:21)
[2018-01-01] MEDS: amLODIPine BESYLATE 10 MG TABLET (FP) PO SCH (10:21)
[2018-01-01] MEDS: METOPROLOL TARTRATE 50 MG TABLET (FP) PO SCH (10:23)
[2018-01-01] MEDS: NAPROXEN 250 MG TABLET (FP) PO SCH ×2 (11:05→22:17)
--- NOTE | 2018-01-01 11:35 | PN ---
S CIWA - CIWA Score Nausea/Vomitin-No Nausea/No Vomiting Muscle Tremors: 4-Moderate,w/Arms Extend Anxiety: 4-Mod. Anxious/Guarded Agitation: 4-Moderately Restless Paroxysmal Sweats: 1-Minimal Palms Moist Orientation: 0-Oriented Tacttile Disturbances: 0-None Auditory Disturbances: 0-None Visual Disturbances: 0-None Headache: 0-None Present CIWA-Ar Total Score: 13 BHS COWS - Scale Resting Pulse: 0= ME 80 or Below Sweatin= Chills/Flushing Restless Observation: 3= Extraneous Movement Pupil Size: 2= Moderately Dilated Bone or Joint Aches: 4=Acute Joint/Muscle Pain Runny Nose/ Eye Tearin= Nasal Congestion GI Upset > 30mins: 0= None Tremor Observation of Outstretched Hands: 2= Slight Tremor Visible Yawning Observation: 1= 1-2x During Session Anxiety or Irritability: 2=Irritable/Anxious Goose Flesh Skin: 0=Smooth Skin COWS Score: 16 BHS Progress Note (SOAP) Subjective: IRRITABILITY,ANXIETY,JITTERY,NASAL CONGESTION,TREMORS,BONE/ BODY ACHES, INTERMITTENT SLEEP. PT REPORTS HE IS ON BP MEDS--AMLODIPINE AND METOPROLOL. ALOS ON NAPROXEN FOR PAIN. Objective: 01/01/18 11:32 Vital Signs Temperature 95.8 F L 01/01/18 09:21 Pulse Rate 80 01/01/18 09:21 Respiratory Rate 18 01/01/18 09:21 Blood Pressure 158/100 01/01/18 09:21 O2 Sat by Pulse Oximetry (%) Laboratory Tests 12/31/17 01/01/18 01/01/18 22:00 07:15 07:15 WBC RBC Hgb Hct MCV MCH MCHC RDW Plt Count MPV Sodium 144 Potassium 4.3 Chloride 112 H Carbon Dioxide 26 Anion Gap 6 L BUN 10 Creatinine 0.6 L D Creat Clearance w eGFR > 60 Random Glucose 75 D Calcium 8.0 L Total Bilirubin 0.7 D AST 19 ALT 16 D Alkaline Phosphatase 87 Total Protein 6.1 L Albumin 3.2 L Urine Color Ltyellow Urine Appearance Clear Urine pH 5.0 Ur Specific [place] 1.010 Urine Protein Negative Urine Glucose (UA) Negative Urine Ketones Negative Urine Blood Negative Urine Nitrite Negative Urine Bilirubin Negative Urine Urobilinogen Negative Ur Leukocyte Esterase Negative RPR Titer Nonreactive 01/01/18 07:50 WBC 7.8 RBC 4.47 Hgb 15.1 Hct 43.9 MCV 98.3 H MCH 33.7 MCHC 34.3 RDW 14.3 Plt Count 325 MPV 8.2 Sodium Potassium Chloride Carbon Dioxide Anion Gap BUN Creatinine Creat Clearance w eGFR Random Glucose Calcium Total Bilirubin AST ALT Alkaline Phosphatase Total Protein Albumin Urine Color Urine Appearance Urine pH Ur Specific [place] Urine Protein Urine Glucose (UA) Urine Ketones Urine Blood Urine Nitrite Urine Bilirubin Urine Urobilinogen Ur Leukocyte Esterase RPR Titer Assessment: 01/01/18 11:32 WITHDRAWAL SX Plan: CONTINUE DETOX REORDER BP MEDS
--- NOTE | 2018-01-01 14:34 | EKG ---
Test Reason : Blood Pressure : / mmHG Vent. Rate : 077 BPM Atrial Rate : 077 BPM P-R Int : 164 ms QRS Dur : 088 ms QT Int : 416 ms P-R-T Axes : 053 000 026 degrees QTc Int : 470 ms NORMAL SINUS RHYTHM NORMAL ECG WHEN COMPARED WITH ECG OF 24-SEP-2017 20:20, NO SIGNIFICANT CHANGE WAS FOUND Confirmed by MD Ellis Daniel ([id number]) on 01/01/2018 2:34:39 PM Referred By: Margarito Zavala Confirmed By:Reynold Ellis MD
[2018-01-01] MEDS: THIAMINE HCL 100 MG TABLET (FP) PO SCH (22:18)
[2018-01-02] MEDS: chlordiazePOXIDE HCL 25 MG CAPSULE PO SCH (05:09)
[2018-01-02 09:08] VITALS: BP 144/90; PULSE 89; TEMP 95.6
[2018-01-02] MEDS: METOPROLOL TARTRATE 50 MG TABLET (FP) PO SCH (09:35)
[2018-01-02] MEDS: NAPROXEN 250 MG TABLET (FP) PO SCH (09:35)
[2018-01-02] MEDS: PRENATAL VITAMINS W/ FOLIC ACID TABLET (FP) PO SCH (09:35)
[2018-01-02] MEDS: amLODIPine BESYLATE 10 MG TABLET (FP) PO SCH (09:35)
[2018-01-02] MEDS: NICOTINE 14 MG/24 HOURS TOPICAL PATCH TD SCH (09:35)
--- NOTE | 2018-01-02 09:48 | PN ---
S Progress Note (SOAP) Subjective: States "I just want to leave". Objective: 01/02/18 09:43 Arrived to unit to learn pt had attempted to leave unit by taking the back stairs which set off the alarm Pt was re-directed back to unit. A & O x 3, has steady gait, +shakes, skin flushed and slight moist at the forehead. Vital Signs Temperature 95.6 F L 01/02/18 09:07 Pulse Rate 89 01/02/18 09:07 Respiratory Rate 18 01/02/18 09:07 Blood Pressure 144/90 01/02/18 09:07 O2 Sat by Pulse Oximetry (%) Laboratory Last Values WBC 7.8 K/mm3 (4.0-10.0) 01/01/18 07:50 RBC 4.47 M/mm3 (4.00-5.60) 01/01/18 07:50 Hgb 15.1 GM/dL (11.7-16.9) 01/01/18 07:50 Hct 43.9 % (35.4-49) 01/01/18 07:50 MCV 98.3 fl (80-96) H 01/01/18 07:50 MCH 33.7 pg (25.7-33.7) 01/01/18 07:50 MCHC 34.3 g/dl (32.0-35.9) 01/01/18 07:50 RDW 14.3 % (11.9-15.9) 01/01/18 07:50 Plt Count 325 K/MM3 (134-434) 01/01/18 07:50 MPV 8.2 fl (7.5-11.1) 01/01/18 07:50 Sodium 144 mmol/L (136-145) 01/01/18 07:15 Potassium 4.3 mmol/L (3.5-5.1) 01/01/18 07:15 Chloride 112 mmol/L (98-107) H 01/01/18 07:15 Carbon Dioxide 26 mmol/L (21-32) 01/01/18 07:15 Anion Gap 6 (8-16) L 01/01/18 07:15 BUN 10 mg/dL (7-18) 01/01/18 07:15 Creatinine 0.6 mg/dL (0.7-1.3) L D 01/01/18 07:15 Creat Clearance w eGFR > 60 (>60) 01/01/18 07:15 Random Glucose 75 mg/dL (74-106) D 01/01/18 07:15 Calcium 8.0 mg/dL (8.5-10.1) L 01/01/18 07:15 Total Bilirubin 0.7 mg/dL (0.2-1.0) D 01/01/18 07:15 AST 19 U/L (15-37) 01/01/18 07:15 ALT 16 U/L (12-78) D 01/01/18 07:15 Alkaline Phosphatase 87 U/L (45-117) 01/01/18 07:15 Total Protein 6.1 g/dl (6.4-8.2) L 01/01/18 07:15 Albumin 3.2 g/dl (3.4-5.0) L 01/01/18 07:15 Urine Color Ltyellow 12/31/17 22:00 Urine Appearance Clear 12/31/17 22:00 Urine pH 5.0 (5.0-8.0) 12/31/17 22:00 Ur Specific [place] 1.010 (1.001-1.035) 12/31/17 22:00 Urine Protein Negative (NEGATIVE) 12/31/17 22:00 Urine Glucose (UA) Negative (NEGATIVE) 12/31/17 22:00 Urine Ketones Negative (NEGATIVE) 12/31/17 22:00 Urine Blood Negative (NEGATIVE) 12/31/17 22:00 Urine Nitrite Negative (NEGATIVE) 12/31/17 22:00 Urine Bilirubin Negative (<2.0 mg/dL) 12/31/17 22:00 Urine Urobilinogen Negative mg/dL (0.2-1.0) 12/31/17 22:00 Ur Leukocyte Esterase Negative (NEGATIVE) 12/31/17 22:00 RPR Titer Nonreactive (NONREACTIVE) 01/01/18 07:15 Assessment: 01/02/18 09:46 withdrawal sx Pt adamant about leaving Refusing advice/education to stay to complete detox Plan: pt will sign out AMA
--- NOTE | 2018-01-02 09:55 | DS ---
[facility] Detox Discharge Summary Admission Date: 12/31/17 Discharge Date: 01/02/18 - History Present History: Alcohol Dependence Additional Comments: Arrived to unit to learn pt had attempted to leave unit by taking the back stairs which set off the alarm Pt was re-directed back to unit. A & O x 3, has steady gait, +shakes, skin flushed and slight moist at the forehead. Pt states he takes amlodipine, metoprolol but declines medication refill saying that he still has a lot. 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 He will follow up with his PMD Dr Livan Gonzalez on [facility]. Pt has a documented hx of signing out AMA 1-2 days after he is admitted for detox. Counselor Stephen aware of pt's decision and at with this provider by pt's side. Pertinent Past History: HTN, psych - Physical Exam Results Vital Signs: Vital Signs Temperature 95.6 F L 01/02/18 09:07 Pulse Rate 89 01/02/18 09:07 Respiratory Rate 18 01/02/18 09:07 Blood Pressure 144/90 01/02/18 09:07 O2 Sat by Pulse Oximetry (%) Pertinent Admission Physical Exam Findings: withdrawal sx - Medication Discharge Medications: Ambulatory Orders Metoprolol Tartrate [Lopressor -] 50 mg PO DAILY 09/23/17 Sertraline HCl [Zoloft -] 25 mg PO BID 12/17/17 Amlodipine Besylate 10 mg PO DAILY 01/01/18 Naproxen 250 mg PO BID 01/01/18 - Diagnosis (1) Alcohol dependence with uncomplicated withdrawal Current Visit: Yes Status: Acute (2) Nicotine dependence Current Visit: Yes Status: Acute Qualifiers: Nicotine product type: cigarettes Substance use status: in withdrawal Qualified Code(s): F17.213 - Nicotine dependence, cigarettes, with withdrawal (3) HTN (hypertension) Current Visit: Yes Status: Chronic Qualifiers: Hypertension type: essential hypertension Qualified Code(s): I10 - Essential (primary) hypertension (4) Drug-induced mood disorder Current Visit: No Status: Suspected - AMA Did Patient Leave Against Medical Advice: Yes
[2018-01-02] MEDS ORDERED: chlordiazePOXIDE 5 MG CAPSULE PO SCH (23:00)
[2018-01-03] MEDS ORDERED: chlordiazePOXIDE HCL 10 MG CAPSULE PO SCH (23:00)
== END 2018-01-02 09:05 | disposition left against medical advice (07) | DRG 894 ==
LOC: YASAS 08:51 → Y3N 17:45
PROVIDERS: ADMIT Internal Medicine; ATTEND Internal Medicine
PROC: HZ2ZZZZ Detoxification Services for Substance Abuse Treatment (ICD-10-PCS; principal; 2017-12-31)
DX: F13.230 Sedative, hypnotic or anxiolytic dependence with withdrawal, uncomplicated (principal); F10.230 Alcohol dependence with withdrawal, uncomplicated; F17.213 Nicotine dependence, cigarettes, with withdrawal; F19.24 Other psychoactive substance dependence with psychoactive substance-induced mood disorder; F32.9 Major depressive disorder, single episode, unspecified; I10 Essential (primary) hypertension; Z86.19 Personal history of other infectious and parasitic diseases
CPT/HCPCS: 36415; 80053; 81003; 85027; 86593; 93005; 93010

== ENCOUNTER → 2021-05-15 | Emergency (ER) | payer OTHER ==
[2021-05-15 10:39] VITALS: BP 143/83; PULSE 89; TEMP 97.3; BMI 27.3
== END | disposition left against medical advice (07) ==
LOC: JER 10:29
DX: M79.605 Pain in left leg (principal)
CPT/HCPCS: 99281-25

== ENCOUNTER 2022-08-25 12:25 | Observation (INO) | payer OTHER ==
[2022-08-25 13:33] VITALS: BMI 26.6
[2022-08-25] MEDS ORDERED: CEFTRIAXONE 1 GM/50 ML BAG ONE (14:59)
[2022-08-25] MEDS ORDERED: CEFTRIAXONE 1,000 MG in DEXTROSE 5%-WATER - 50 ML IVPB ONE (17:02)
[2022-08-25 17:21] LABS: BASO % 0.8 % (0-2.0); EOS % 4.1 % (0-4.5); HEMATOCRIT 48.7 % (35.4-49); LYMPH % 19.7 % (8-40); MCH 32.5 pg (25.7-33.7); MCHC 32.8 g/dl (32.0-35.9); MEAN CELL VOLUME 98.9 fl (80-96); MEAN PLT VOLUME 7.8 fl (7.5-11.1); MONO % 7.5 % (3.8-10.2); NEUT % 67.9 % (42.8-82.8); PLATELET COUNT 365 10^3/uL (134-434); RBC 4.92 M/mm3 (4.00-5.60); RDW 13.5 % (11.9-15.9); WHITE BLOOD COUNT 8.5 K/mm3 (4.0-10.0)
[2022-08-25 17:31] LABS: ALBUMIN 2.9 g/dl (3.4-5.0); BLOOD UREA NITROGEN 15.9 mg/dL (7-18)
[2022-08-25 17:34] LABS: CREATININE 0.9 mg/dL (0.55-1.3)
[2022-08-25 17:35] LABS: BILIRUBIN,TOTAL 0.5 mg/dL (0.2-1); TOT PROT 6.5 g/dl (6.4-8.2)
[2022-08-25] MEDS ORDERED: PIPERACILLIN/TAZOB 4.5 GM 4.5 GM in DEXTROSE 5%-WATER 100 ML IVPB ONE (20:10)
[2022-08-25] MEDS ORDERED: PIPERACILLIN/TAZOB 4.5 GM 4.5 GM/100 ML BAG IVPB ONE (20:22)
[2022-08-25 20:40] LABS: EPI CELLS >36 /uL (0-25.1); HYALINE CASTS 12 /uL (0-3.1); PH,URINE 5.5 (5.0-8.0); URINE APPEARANCE CLOUDY; URINE BACTERIA 47 /uL (0-1359); URINE BILIRUBIN NEGATIVE (NEGATIVE); URINE COLOR DK YELLOW; URINE GLUCOSE (UA) NEGATIVE (NEGATIVE); URINE KETONE TRACE (NEGATIVE); URINE LEUK ESTERASE 2+ (NEGATIVE); URINE NITRITE NEGATIVE (NEGATIVE); URINE PROTEIN TRACE (NEGATIVE); URINE UROBILINOGEN 0.2 mg/dL (0.2-1.0); URINE WBC 402 /uL (0-25.8)
[2022-08-25] MEDS ORDERED: traZODone HCL 100 MG TABLET (FP) PO ONE (20:54)
[2022-08-25] MEDS ORDERED: DOCUSATE SODIUM 100 MG CAPSULE (FP) PO PRN (21:19)
[2022-08-25] MEDS ORDERED: ACETAMINOPHEN 1000 MG/100 ML BAG IVPB PRN (21:22)
[2022-08-25 22:44] LABS: URINE RBC 84.8 /uL (0-23.9)
[2022-08-25 22:45] LABS: URINE CRYSTALS NONE SEEN /hpf
[2022-08-26 08:06] LABS: BASO % 0.7 % (0-2.0); EOS % 3.4 % (0-4.5); HEMATOCRIT 45.9 % (35.4-49); HEMOGLOBIN 15.3 GM/dL (11.7-16.9); LYMPH % 12.3 % (8-40); MCH 32.3 pg (25.7-33.7); MCHC 33.3 g/dl (32.0-35.9); MEAN CELL VOLUME 97.1 fl (80-96); MEAN PLT VOLUME 7.4 fl (7.5-11.1); MONO % 7.2 % (3.8-10.2); NEUT % 76.4 % (42.8-82.8); PLATELET COUNT 360 10^3/uL (134-434); RBC 4.73 M/mm3 (4.00-5.60); RDW 13.2 % (11.9-15.9); WHITE BLOOD COUNT 9.7 K/mm3 (4.0-10.0)
[2022-08-26 08:40] LABS: CALCIUM 8.3 mg/dL (8.5-10.1)
[2022-08-26 08:42] LABS: BLOOD UREA NITROGEN 17.6 mg/dL (7-18)
[2022-08-26 08:45] LABS: CREATININE 0.9 mg/dL (0.55-1.3)
[2022-08-26] MEDS ORDERED: ENOXAPARIN NA (PORCINE) 40 MG/0.4 ML DISP.SYRIN SQ ONE (09:33)
[2022-08-26] MEDS ORDERED: TAMSULOSIN HCL 0.4 MG CAP ONE (09:33)
[2022-08-26] MEDS ORDERED: LOSARTAN POTASSIUM 50 MG TABLET ONE ×2 (09:33→21:25)
[2022-08-26] MEDS ORDERED: amLODIPine BESYLATE 5 MG TABLET (FP) ONE (09:33)
[2022-08-26] MEDS ORDERED: PARoxetine HCL 10 MG TABLET ONE (09:33)
[2022-08-26] MEDS ORDERED: CEFTRIAXONE 1 GM/50 ML BAG ONE (09:34)
[2022-08-26] MEDS: ENOXAPARIN NA (PORCINE) 40 MG/0.4 ML DISP.SYRIN SQ SCH (09:38)
[2022-08-26] MEDS: LOSARTAN POTASSIUM 50 MG TABLET PO SCH ×2 (09:39→21:25)
[2022-08-26] MEDS: amLODIPine BESYLATE 5 MG TABLET (FP) PO SCH (09:39)
[2022-08-26] MEDS: PARoxetine HCL 20 MG TABLET PO SCH (09:39)
[2022-08-26] MEDS: TAMSULOSIN HCL 0.4 MG CAP PO SCH (09:39)
[2022-08-26] MEDS: CELECOXIB 200 MG CAPSULE PO SCH (09:42)
[2022-08-26] MEDS: METOPROLOL TARTRATE 50 MG TABLET (FP) PO SCH ×2 (09:42→21:26)
[2022-08-26] MEDS ORDERED: METOPROLOL TARTRATE 50 MG TABLET (FP) ONE ×2 (09:42→21:25)
[2022-08-26] MEDS ORDERED: CEFTRIAXONE 1 GM in DEXTROSE 5%-WATER - 50 ML IVPB SCH (10:00)
[2022-08-26] MEDS ORDERED: ACETAMINOPHEN 325 MG TABLET (FP) PO PRN (21:19)
[2022-08-26] MEDS ORDERED: traZODone HCL 50 MG TABLET (FP) PO SCH (22:00)
[2022-08-27] MEDS: LOSARTAN POTASSIUM 50 MG TABLET PO SCH (09:43)
[2022-08-27] MEDS: METOPROLOL TARTRATE 50 MG TABLET (FP) PO SCH (09:43)
[2022-08-27] MEDS: PARoxetine HCL 20 MG TABLET PO SCH (09:43)
[2022-08-27] MEDS: TAMSULOSIN HCL 0.4 MG CAP PO SCH (09:44)
[2022-08-27] MEDS: ENOXAPARIN NA (PORCINE) 40 MG/0.4 ML DISP.SYRIN SQ SCH (09:44)
[2022-08-27] MEDS: amLODIPine BESYLATE 5 MG TABLET (FP) PO SCH (09:44)
[2022-08-27] MEDS ORDERED: CEFTRIAXONE 1 GM in DEXTROSE 5%-WATER - 50 ML IVPB SCH (09:50)
[2022-08-27 09:52] VITALS: BP 122/70; PULSE 57; RESP 20; TEMP 98.3
[2022-08-27] MEDS: CELECOXIB 200 MG CAPSULE PO SCH (09:55)
== END 2022-08-27 13:14 | disposition home or self-care (01) ==
LOC: JER 12:25 → JERBED 21:00 → J5S 08-27 00:15
PROVIDERS: ADMIT Internal Medicine; ATTEND Internal Medicine
PROC: 3E023GC Introduction of Other Therapeutic Substance into Muscle, Percutaneous Approach (ICD-10-PCS; principal; 2022-08-25)
PROC: 3E03329 Introduction of Other Anti-infective into Peripheral Vein, Percutaneous Approach (ICD-10-PCS; 2022-08-25)
DX: N45.2 Orchitis (principal); N39.0 Urinary tract infection, site not specified; R30.0 Dysuria; I71.40 Abdominal aortic aneurysm, without rupture, unspecified; B19.20 Unspecified viral hepatitis C without hepatic coma; F11.20 Opioid dependence, uncomplicated; R10.9 Unspecified abdominal pain; R82.90 Unspecified abnormal findings in urine; F10.230 Alcohol dependence with withdrawal, uncomplicated; G47.00 Insomnia, unspecified; F17.210 Nicotine dependence, cigarettes, uncomplicated; F13.20 Sedative, hypnotic or anxiolytic dependence, uncomplicated
CPT/HCPCS: 36415; 76870-TC; 80048; 80053; 81003; 85025; 87040; 87086; 93005; 93010; 96365; 96366; 96372; 99285-25; C9803-CS; G0378; U0003; U0005